=== PATIENT | female | born 1965 | race African-American/Black ===

== ENCOUNTER → 2017-04-17 | Outpatient (CLI) | payer BC ==
[2017-04-17 12:35] LABS: ALT 41 U/L (9-52); AST 31 U/L (14-36); Cholesterol 163 mg/dL (<200); HDL Cholesterol 98 mg/dL (40-60); LDL Cholesterol,Calculated 57 mg/dL (0-99); Triglycerides 42 mg/dL (<150)
== END | disposition home or self-care (01) ==
LOC: LABWHC1 11:49
PROVIDERS: ATTEND Family Medicine
DX: E78.00 Pure hypercholesterolemia, unspecified (principal)
CPT/HCPCS: 36415; 80061; 84450; 84460

== ENCOUNTER → 2017-06-11 | Outpatient (CLI) | payer BC ==
[2017-06-12 01:53] LABS: Gliadin AB IgA, Unit 1.4 U/mL
== END | disposition home or self-care (01) ==
LOC: LABWHC1 15:52
PROVIDERS: ATTEND Internal Medicine Critical Care Medicine
DX: R09.89 Other specified symptoms and signs involving the circulatory and respiratory systems (principal); J45.909 Unspecified asthma, uncomplicated
CPT/HCPCS: 36415; 83516

== ENCOUNTER → 2018-04-22 | Outpatient (CLI) | payer BC ==
--- NOTE | 2018-04-26 09:07 | MM ---
Reason for exam: additional evaluation requested from prior study. Last mammogram was performed 2 years and 6 months ago. History: Patient is postmenopausal and had first child at age 34. Family history of breast cancer in mother at age 88. Benign right mammotome panel of the right breast, February 13, 2009. Physical Findings: Nurse did not find any significant physical abnormalities on exam. MG 3D Diag Mammo W/Cad ABDI Bilateral CC and MLO view(s) were taken. LM, spot compression CC, and spot compression MLO view(s) were taken of the left breast. Prior study comparison: October 27, 2015, bilateral MG 3d diag mammo w/cad ABDI. October 21, 2013, bilateral MG diagnostic mammo w CAD ABDI. The breast tissue is heterogeneously dense. This may lower the sensitivity of mammography. There are no suspicious calcifications. The focal asymmetry in the left breast at 12 o'clock persists on additional views. An ultrasound is recommended. ASSESSMENT: Incomplete: need additional imaging evaluation, BI-RAD 0 RECOMMENDATION: Ultrasound of the left breast.
--- NOTE | 2018-04-26 09:09 | USB ---
History: Patient is postmenopausal and had first child at age 34. Family history of breast cancer in mother at age 88. Benign right mammotome panel of the right breast, February 13, 2009. US Breast Limited LT Left limited breast ultrasound including focal area of concern, retroareolar and axilla demonstrates No cystic or solid lesion seen on the left breast. These results were verbally communicated with the patient and result sheet given to the patient on 04/22/18. ASSESSMENT: Probably benign, BI-RAD 3 RECOMMENDATION: Follow-up diagnostic mammogram of the left breast in 6 months.
== END | disposition home or self-care (01) ==
LOC: RADMAMWWP 07:41
PROVIDERS: ATTEND Family Medicine
DX: R92.8 Other abnormal and inconclusive findings on diagnostic imaging of breast (principal)
CPT/HCPCS: 77062; 77066

== ENCOUNTER → 2019-02-22 | Outpatient (CLI) | payer BC ==
--- NOTE | 2019-02-22 09:08 | MM ---
Reason for exam: follow-up at short interval from prior study. Last mammogram was performed 10 months ago. History: Patient is postmenopausal, has history of ovarian cancer at age 53, and had first child at age 34. Family history of breast cancer in mother at age 88. Benign right mammotome panel of the right breast, February 13, 2009. Took hormonal contraceptives for 15 years. Physical Findings: Nurse did not find any significant physical abnormalities on exam. MG 3D Diag Mammo W/Cad LT CC and MLO view(s) were taken of the left breast. Prior study comparison: April 22, 2018, bilateral MG 3d diag mammo w/cad ABDI. October 27, 2015, bilateral MG 3d diag mammo w/cad ABDI. Focal asymmetry appears stable. No significant new findings when compared with previous films. These results were verbally communicated with the patient and result sheet given to the patient on 02/22/19. ASSESSMENT: Benign, BI-RAD 2 RECOMMENDATION: Routine screening mammogram of both breasts in 2 months.
== END | disposition home or self-care (01) ==
LOC: RADMAMWWP 07:45
PROVIDERS: ATTEND Family Medicine
DX: R92.8 Other abnormal and inconclusive findings on diagnostic imaging of breast (principal)
CPT/HCPCS: 77061; 77065

== ENCOUNTER → 2019-11-22 | Outpatient (CLI) | payer BC ==
--- NOTE | 2019-11-22 18:35 | BD ---
EXAMINATION TYPE: Axial Bone Density DATE OF EXAM: 11/22/2019 COMPARISON: NONE CLINICAL HISTORY: POSTMENOPAUSAL SCREENING Height: 5 FT 2 3/4 IN Weight: 187 FRAX RISK QUESTIONS: Alcohol (3 or more units per day): NO Family History (Parent hip fracture): NO Glucocorticoids (More than 3mos): YES (Ex: prednisone, prednisolone, methylprednisolone, dexamethasone, and hydrocortisone). History of Fracture in Adulthood: NO Secondary Osteoporosis: 1. Type 1 Diabetes: NO 2. Hyperthyroidism: NO 3. Menopause before 45: NO 4. Malnutrition: NO 5. Chronic liver disease: NO Rheumatoid Arthritis: NO Current Tobacco Use: NO RISK FACTORS HISTORY OF: Family History of Osteoporosis: NO Active: YES Postmenopausal woman: APPROX AGE [age]TOTAL HYST AUGUST 2018 OVARIAN CANCER MEDICATIONS: Prednisone or other steroids: ADVAIR How Lon YEARS Additional Medications: LUPRON, ADVAIR,FLONASE, ANASTROZOLE, ATORVASTATIN, AMLODIPINE, LOSARTIN,SING ULAIR Additional History: OVARIAN CANCER NO TX EXAM MEASUREMENTS: Bone mineral densitometry was performed using the [employer]. Bone mineral density as measured about the Lumbar spine is: ----- L1-L4(G/cm2): 1.335 T Score Values are as follows: ----- L2: 1.3 ----- L3: 0.6 ----- L4: 1.6 ----- L1-L4: 1.3 BASELINE Bone mineral density about the R hip (g/cm2): 1.132 Bone mineral density about the L hip (g/cm2): 1.019 T Score values are as follows: -----R Neck: 0.7 -----L Neck: -0.1 -----R Total: 1.5 -----L Total: 1.1 BASELINE IMPRESSION: Normal (Values between +1 and -1 indicate normal bone mass). Consider repeating this study in 5 year s or sooner if there is some new clinical indication. NOTE: T-SCORE=SD OF THE YOUNG ADULT MEAN.
--- NOTE | 2019-11-23 11:14 | MM ---
Reason for exam: screening (asymptomatic). Last mammogram was performed 9 months ago. History: Patient is postmenopausal, has history of ovarian cancer at age 53, and had first child at age 34. Family history of breast cancer in mother at age 88. Benign right mammotome panel of the right breast, February 13, 2009. Took hormonal contraceptives for 15 years. Physical Findings: A clinical breast exam by your physician is recommended on an annual basis and results should be correlated with mammographic findings. MG 3D Screening Mammo W/Cad Bilateral CC and MLO view(s) were taken. Prior study comparison: February 22, 2019, left breast MG 3d diag mammo w/cad LT. April 22, 2018, bilateral MG 3d diag mammo w/cad ABDI. The breast tissue is heterogeneously dense. This may lower the sensitivity of mammography. Previous mammotome biopsy in the right breast. There is no discrete abnormality. ASSESSMENT: Negative, BI-RAD 1 RECOMMENDATION: Routine screening mammogram of both breasts in 1 year.
== END | disposition home or self-care (01) ==
LOC: RADBDWWP 13:16
PROVIDERS: ATTEND Family Medicine
DX: Z12.31 Encounter for screening mammogram for malignant neoplasm of breast (principal); Z78.0 Asymptomatic menopausal state
CPT/HCPCS: 77063; 77067; 77080

== ENCOUNTER → 2020-05-24 | Outpatient (CLI) | payer BC ==
--- NOTE | 2020-05-24 17:01 | US ---
EXAMINATION TYPE: US thyroid st tissue head/neck DATE OF EXAM: 05/24/2020 COMPARISON: NONE CLINICAL HISTORY: 55-year-old female E07.9 Asymmetrical thyroid. Pt states Dr felt thyroid looked asy mmetric. TECHNIQUE: Multiple sonographic images of the thyroid gland are obtained. FINDINGS: GLAND SIZE: Right Lobe: 4.7 x 1.4 x 1.4 cm Overall Parenchyma: homogenous Left Lobe: 4.4 x 1.4 x 1.4 cm Overall Parenchyma: homogeneous Isthmus Thickness: 0.3 cm Credit Control Manager notes: Bilateral neck scanned, no evidence of lymphadenopathy. Bilateral thyroid appeared wnl. IMPRESSION: Thyroid gland upper limits of normal in size. The right lobe is minimally larger than the left. No di screte nodule.
== END | disposition home or self-care (01) ==
LOC: RADUSWWP 14:57
PROVIDERS: ATTEND Family Medicine
DX: E04.9 Nontoxic goiter, unspecified (principal)
CPT/HCPCS: 76536

== ENCOUNTER 2021-03-23 14:06 | Emergency (ER) | payer BC ==
[2021-03-23 14:51] VITALS: TEMP 97.7
[2021-03-23] MEDS ORDERED: SILVER NITRATE APPLICATOR 1 EACH STICK..EA. TOPICAL STA (15:46)
--- NOTE | 2021-03-23 15:46 | ED ---
General Adult HPI - General Chief complaint: ENT Stated complaint: Diff Breathing, Nose Bleed Time Seen by Provider: 03/23/21 15:30 Source: patient Mode of arrival: ambulatory Limitations: no limitations - History of Present Illness Initial comments: Patient presents to the ED with her friend for evaluation. Patient states that she has had right-sided epistaxis since yesterday. Patient states that she had both of her nasal cavities "packed" at [facility] yesterday with resolution of her epistaxis. Patient states that the right side of her nose began to bleed again today, so she returned to [facility], and she states that her packings were removed and Andrew-Synephrine nasal spray was administered. Patient states that her epistaxis has resolved since then, but she is worried that it may begin again later today. Patient is requesting nasal cautery. Patient states that she has ovarian cancer, and she is being treated with chemotherapy. Patient states that she last had a partial chemotherapy treatment 4 days ago. Patient also states that she had Covid earlier this month. Patient denies fever or chills, anticoagulant medication use, trauma or injury, any pain, nasal pain, headache, chest pain, dyspnea, dizziness, nausea or vomiting, bloody or melanotic stool, or any other symptoms or complaints. - Related Data Home Medications Medication Instructions Recorded Confirmed Albuterol Inhaler [Ventolin Hfa 2 puff INHALATION RT-Q6H PRN 07/17/20 03/23/21 Inhaler] Atorvastatin [Lipitor] 20 mg PO DAILY 07/17/20 03/23/21 Fluticasone/Salmeterol [Advair Hfa 2 puff INHALATION RT-BID 07/17/20 03/23/21 230-21 Mcg Inhaler] Losartan [Cozaar] 25 mg PO DAILY 07/17/20 03/23/21 Montelukast [Singulair] 10 mg PO DAILY 07/17/20 03/23/21 amLODIPine [Norvasc] 5 mg PO BID 07/17/20 03/23/21 Ascorbic Acid [Vitamin C] 500 mg PO DAILY 03/23/21 03/23/21 Benzonatate [Tessalon Perles] 100 mg PO TID 03/23/21 03/23/21 Dexamethasone 6 mg PO DAILY 03/23/21 03/23/21 LORazepam [Ativan] 0.5 mg PO TID PRN 03/23/21 03/23/21 Zinc Gluconate [Zinc] 50 mg PO DAILY 03/23/21 03/23/21 Allergies Allergy/AdvReac Type Severity Reaction Status Date / Time adhesive tape Allergy Unknown Verified 03/23/21 16:51 cat dander Allergy Unknown Verified 03/23/21 16:51 cephalexin [From Keflex] Allergy Unknown Verified 03/23/21 16:51 house dust Allergy Unknown Verified 03/23/21 16:51 Review of Systems ROS Statement: Those systems with pertinent positive or pertinent negative responses have been documented in the HPI. ROS Other: All systems not noted in ROS Statement are negative. Past Medical History Past Medical History: Asthma, Cancer, Diabetes Mellitus, Hypertension Additional Past Medical History / Comment(s): COVID 02/21/21 HOSPITALIZED OXYGEN AT HOME POST DISCHARGE, pt. started chemo for Ovarian CA. History of Any Multi-Drug Resistant Organisms: None Reported Past Surgical History: Appendectomy, Bowel Resection, Cardiac Ablation, Hysterectomy Additional Past Surgical History / Comment(s): Dec 2019 colectomy, appendectomy Past Anesthesia/Blood Transfusion Reactions: No Reported Reaction Past Psychological History: No Psychological Hx Reported Smoking Status: Former smoker Past Alcohol Use History: Rare Past Drug Use History: None Reported General Exam Limitations: no limitations General appearance: alert, in no apparent distress Head exam: Present: atraumatic, normocephalic Eye exam: Present: normal appearance, EOMI ENT exam: Present: other (A few small clots are noted along right anterior nasal septum; no active epistaxis is noted at this time) Neck exam: Present: other (Trachea is in midline) Respiratory exam: Present: normal lung sounds bilaterally. Absent: respiratory distress, wheezes, rales, rhonchi, stridor Cardiovascular Exam: Present: regular rate, normal rhythm, normal heart sounds, other (Normal radial pulses bilaterally ) GI/Abdominal exam: Present: soft. Absent: distended, tenderness, guarding Neurological exam: Present: alert, oriented X3. Absent: motor sensory deficit Psychiatric exam: Present: normal affect, normal mood Skin exam: Present: warm, dry, intact, normal color Course Vital Signs 03/23/21 03/23/21 14:45 17:38 Temperature 97.7 F Pulse Rate 138 H 86 Respiratory 19 18 Rate Blood Pressure 94/65 103/75 O2 Sat by Pulse 90 L 94 L Oximetry - Reevaluation(s) Reevaluation #1: 03/23/21 20:25 Patient has not had any further epistaxis while in the ED. Patient remains alert and breathing comfortably. Patient denies development of any new symptoms while in the ED. Patient and friend are aware the patient's test results, and patient feels comfortable going home with her friend at this time. Patient was counseled about epistaxis and hyperglycemia, and she was clearly explained return and follow-up instructions. Patient was instructed to have a low threshold for return to the emergency department should her symptoms return /worsen. Patient was also instructed to follow up closely with her primary care provider, as well as ENT surgery. Patient feels comfortable with this plan. Procedures - Procedures Initial comment: 1644: Silver nitrate cautery was performed along the patient's right anterior nasal septum with verbal consent from the patient obtained. Patient tolerated the procedure well and without any complication. No post-procedural epistaxis was observed. Medical Decision Making - Medical Decision Making Patient has not had any further epistaxis while in the ED. I did cauterize the patient's right anterior nasal septum with silver nitrate in the areas where she was noted to have small blood clots. Patient's blood glucose is elevated, bur she is not acidotic, and she has a normal anion gap. Patient's blood glucose has improved while in the ED with IV fluids and subcutaneous regular insulin administration. Patient was instructed to check her blood glucose regularly at home and to follow up closely with her primary care provider for further evaluation and management of her hyperglycemia. Patient was counseled about epistaxis and hyperglycemia, and she was clearly explained return and follow-up instructions. Will discharge patient home with her friend at this time. - Lab Data Result diagrams: 03/23/21 16:15 03/23/21 16:15 Lab Results 03/23/21 03/23/21 03/23/21 Range/Units 16:15 16:15 16:15 WBC 11.0 H (3.8-10.6) k/uL RBC 4.00 (3.80-5.40) m/uL Hgb 12.3 (11.4-16.0) gm/dL Hct 37.8 (34.0-46.0) % MCV 94.4 D (80.0-100.0) fL MCH 30.7 (25.0-35.0) pg MCHC 32.5 (31.0-37.0) g/dL RDW 18.3 H (11.5-15.5) % Plt Count 109 L (150-450) k/uL MPV 8.5 Neutrophils % 72 % Lymphocytes % 25 % Monocytes % 1 % Eosinophils % 2 % Basophils % 0 % Neutrophils # 8.0 H (1.3-7.7) k/uL Lymphocytes # 2.7 (1.0-4.8) k/uL Monocytes # 0.1 (0-1.0) k/uL Eosinophils # 0.2 (0-0.7) k/uL Basophils # 0.0 (0-0.2) k/uL Anisocytosis Slight Macrocytosis Slight PT 10.5 (9.0-12.0) sec INR 1.0 (<1.2) APTT 18.5 L (22.0-30.0) sec Sodium 131 L (137-145) mmol/L Potassium 3.9 (3.5-5.1) mmol/L Chloride 97 L (98-107) mmol/L Carbon Dioxide 23 (22-30) mmol/L Anion Gap 11 mmol/L BUN 56 H (7-17) mg/dL Creatinine 0.72 (0.52-1.04) mg/dL Est GFR (CKD-EPI)AfAm >90 (>60 ml/min/1.73 sqM) Est GFR (CKD-EPI)NonAf >90 (>60 ml/min/1.73 sqM) Glucose 352 H (74-99) mg/dL POC Glucose (mg/dL) (75-99) mg/dL POC Glu Cement Loader ID Calcium 8.6 (8.4-10.2) mg/dL Total Bilirubin 1.1 (0.2-1.3) mg/dL AST 24 (14-36) U/L ALT 37 H (4-34) U/L Alkaline Phosphatase 86 (38-126) U/L Total Protein 6.2 L (6.3-8.2) g/dL Albumin 3.4 L (3.5-5.0) g/dL 03/23/21 03/23/21 Range/Units 17:31 20:22 WBC (3.8-10.6) k/uL RBC (3.80-5.40) m/uL Hgb (11.4-16.0) gm/dL Hct (34.0-46.0) % MCV (80.0-100.0) fL MCH (25.0-35.0) pg MCHC (31.0-37.0) g/dL RDW (11.5-15.5) % Plt Count (150-450) k/uL MPV Neutrophils % % Lymphocytes % % Monocytes % % Eosinophils % % Basophils % % Neutrophils # (1.3-7.7) k/uL Lymphocytes # (1.0-4.8) k/uL Monocytes # (0-1.0) k/uL Eosinophils # (0-0.7) k/uL Basophils # (0-0.2) k/uL Anisocytosis Macrocytosis PT (9.0-12.0) sec INR (<1.2) APTT (22.0-30.0) sec Sodium (137-145) mmol/L Potassium (3.5-5.1) mmol/L Chloride (98-107) mmol/L Carbon Dioxide (22-30) mmol/L Anion Gap mmol/L BUN (7-17) mg/dL Creatinine (0.52-1.04) mg/dL Est GFR (CKD-EPI)AfAm (>60 ml/min/1.73 sqM) Est GFR (CKD-EPI)NonAf (>60 ml/min/1.73 sqM) Glucose (74-99) mg/dL POC Glucose (mg/dL) 374 H 271 H (75-99) mg/dL POC Glu Cement Loader Kami Cain Tom Calcium (8.4-10.2) mg/dL Total Bilirubin (0.2-1.3) mg/dL AST (14-36) U/L ALT (4-34) U/L Alkaline Phosphatase (38-126) U/L Total Protein (6.3-8.2) g/dL Albumin (3.5-5.0) g/dL Disposition Clinical Impression: Epistaxis, Hyperglycemia Disposition: HOME SELF-CARE Condition: Stable Instructions (If sedation given, give patient instructions): Nosebleed (ED), Diabetic Hyperglycemia (ED) Additional Instructions: Return to the ER immediately should you develop increased bleeding, feeling dizzy or faint, shortness of breath, any significant pain, a fever, vomiting, or new or worsening symptoms. Follow up closely with your primary care provider, as well as with ENT surgery. Is patient prescribed a controlled substance at d/c from ED?: No Referrals: Omgea Landis MD [Primary Care Provider] - 1-2 days Sammy Murdock DO [Doctor of Osteopathic Medicine] - 1-2 days Time of Disposition: 20:26
[2021-03-23 16:27] LABS: Anisocytosis Slight; Basophils % (A) 0 %; Eosinophils # (A) 0.2 k/uL (0-0.7); Eosinophils % (A) 2 %; HCT 37.8 % (34.0-46.0); HGB 12.3 gm/dL (11.4-16.0); Lymphocytes # (A) 2.7 k/uL (1.0-4.8); Lymphocytes % (A) 25 %; MCH 30.7 pg (25.0-35.0); MCHC 32.5 g/dL (31.0-37.0); MCV 94.4 fL (80.0-100.0); Macrocytosis Slight; Mean Platelet Volume 8.5; Monocytes # (A) 0.1 k/uL (0-1.0); Monocytes % (A) 1 %; Neutrophils % (A) 72 %; Platelet Count 109 k/uL (150-450); RDW 18.3 % (11.5-15.5)
[2021-03-23 16:48] LABS: ALT 37 U/L (4-34); AST 24 U/L (14-36); African American GFR (CKD) >90 (>60 ml/min/1.73 sqM); Albumin 3.4 g/dL (3.5-5.0); Alkaline Phosphatase 86 U/L (38-126); Anion Gap 11 mmol/L; Blood Urea Nitrogen 56 mg/dL (7-17); Calcium 8.6 mg/dL (8.4-10.2); Carbon Dioxide 23 mmol/L (22-30); Chloride 97 mmol/L (98-107); Glucose 352 mg/dL (74-99); Non-African American GFR(CKD) >90 (>60 ml/min/1.73 sqM); Potassium 3.9 mmol/L (3.5-5.1); Sodium 131 mmol/L (137-145); Total Bilirubin 1.1 mg/dL (0.2-1.3); Total Protein 6.2 g/dL (6.3-8.2)
[2021-03-23] MEDS ORDERED: INSULIN REGULAR 100 UNIT/ML VIAL (IM/SQ) SQ STA (17:07)
[2021-03-23] MEDS ORDERED: SODIUM CHLORIDE 0.9% 1,000 ML IV ONE (17:07)
[2021-03-23 17:19] LABS: Prothrombin Time 10.5 sec (9.0-12.0)
[2021-03-23 17:33] LABS: Glucose,Whole Blood 374 mg/dL (75-99)
[2021-03-23 17:36] LABS: Partial Thromboplastin Time 18.5 sec (22.0-30.0)
[2021-03-23 17:39] VITALS: BP 103/75; PULSE 86; RESP 18
[2021-03-23 20:23] LABS: Glucose,Whole Blood 271 mg/dL (75-99)
== END 2021-03-23 21:14 | disposition home or self-care (01) ==
LOC: EC 14:06
DX: R04.0 Epistaxis (principal); E11.65 Type 2 diabetes mellitus with hyperglycemia; I10 Essential (primary) hypertension; J45.909 Unspecified asthma, uncomplicated; Z87.891 Personal history of nicotine dependence; Z79.51 Long term (current) use of inhaled steroids; Z79.899 Other long term (current) drug therapy
CPT/HCPCS: 30901; 36415; 80053; 85025; 85610; 85730; 96360; 99283

== ENCOUNTER 2021-03-29 22:30 | Observation (INO) | payer BC ==
[2021-03-29] MEDS ORDERED: SODIUM CHLORIDE 0.9% 500 ML 500 ML IV STA (23:08)
[2021-03-29] MEDS ORDERED: SODIUM CHLORIDE 0.9% 1,000 ML IV STA (23:08)
[2021-03-29] MEDS ORDERED: DEXAMETHASONE SOD PHOSPHATE 10 MG/ML 1 ML VIAL IVP STA (23:08)
[2021-03-29] MEDS ORDERED: IPRATROPIUM-ALBUTEROL 3 ML NEB INHALATION STA (23:08)
--- NOTE | 2021-03-29 23:09 | ED ---
SOB HPI - General Chief Complaint: ENT Stated Complaint: Nosebleed Time Seen by Provider: 03/29/21 22:48 Source: patient, EMS, RN notes reviewed, old records reviewed Mode of arrival: EMS Limitations: no limitations - History of Present Illness Initial Comments: This is a 55 female to the emergency room today for evaluation of shortness of breath persistent shortness breath and weakness. Persistent cough or congestion with weakness. Patient decreased activity level with weakness. Patient coronavirus one month ago symptoms are still severe. She still 1 with recurrent nosebleeds MD Complaint: shortness of breath, cough -: week(s) Radiation: back Severity: moderate Severity scale (1-10): 7 Quality: aching Consistency: constant Improves With: oxygen Worsens With: nothing Known History Of: COPD, asthma Context: recent URI, recent illness Associated Symptoms: fever, cough Treatments Prior to Arrival: none - Related Data Home Medications Medication Instructions Recorded Confirmed Albuterol Inhaler [Ventolin Hfa 2 puff INHALATION RT-Q6H PRN 07/17/20 03/23/21 Inhaler] Atorvastatin [Lipitor] 20 mg PO DAILY 07/17/20 03/23/21 Fluticasone/Salmeterol [Advair Hfa 2 puff INHALATION RT-BID 07/17/20 03/23/21 230-21 Mcg Inhaler] Losartan [Cozaar] 25 mg PO DAILY 07/17/20 03/23/21 Montelukast [Singulair] 10 mg PO DAILY 07/17/20 03/23/21 amLODIPine [Norvasc] 5 mg PO BID 07/17/20 03/23/21 Ascorbic Acid [Vitamin C] 500 mg PO DAILY 03/23/21 03/23/21 Benzonatate [Tessalon Perles] 100 mg PO TID 03/23/21 03/23/21 Dexamethasone 6 mg PO DAILY 03/23/21 03/23/21 LORazepam [Ativan] 0.5 mg PO TID PRN 03/23/21 03/23/21 Zinc Gluconate [Zinc] 50 mg PO DAILY 03/23/21 03/23/21 Allergies Allergy/AdvReac Type Severity Reaction Status Date / Time adhesive tape Allergy Unknown Verified 03/23/21 16:51 cat dander Allergy Unknown Verified 03/23/21 16:51 cephalexin [From Keflex] Allergy Unknown Verified 03/23/21 16:51 house dust Allergy Unknown Verified 03/23/21 16:51 Review of Systems ROS Statement: Those systems with pertinent positive or pertinent negative responses have been documented in the HPI. ROS Other: All systems not noted in ROS Statement are negative. Past Medical History Past Medical History: Asthma, Cancer, Diabetes Mellitus, Hypertension Additional Past Medical History / Comment(s): COVID 02/21/21 HOSPITALIZED OXYGEN AT HOME POST DISCHARGE, pt. started chemo for Ovarian CA. History of Any Multi-Drug Resistant Organisms: None Reported Past Surgical History: Appendectomy, Bowel Resection, Cardiac Ablation, Hysterectomy Additional Past Surgical History / Comment(s): Dec 2019 colectomy, appendectomy Past Anesthesia/Blood Transfusion Reactions: No Reported Reaction Past Psychological History: No Psychological Hx Reported Smoking Status: Former smoker Past Alcohol Use History: Rare Past Drug Use History: None Reported General Exam Limitations: no limitations General appearance: alert, in no apparent distress, anxious Head exam: Present: atraumatic, normocephalic, normal inspection Eye exam: Present: normal appearance, PERRL, EOMI. Absent: scleral icterus, conjunctival injection, periorbital swelling ENT exam: Present: normal exam, mucous membranes moist Neck exam: Present: normal inspection. Absent: tenderness, meningismus, lymphadenopathy Respiratory exam: Present: respiratory distress, wheezes, decreased breath sounds, prolonged expiratory. Absent: rales, rhonchi, stridor Cardiovascular Exam: Present: normal rhythm, tachycardia, normal heart sounds. Absent: systolic murmur, diastolic murmur, rubs, gallop, clicks GI/Abdominal exam: Present: soft, normal bowel sounds. Absent: distended, tenderness, guarding, rebound, rigid Extremities exam: Present: normal inspection, full ROM, normal capillary refill. Absent: tenderness, pedal edema, joint swelling, calf tenderness Back exam: Present: normal inspection Neurological exam: Present: alert, oriented X3, CN II-XII intact Psychiatric exam: Present: normal affect, normal mood Skin exam: Present: warm, dry, intact, normal color. Absent: rash Course Vital Signs 03/29/21 03/29/21 03/30/21 22:43 23:32 00:23 Temperature 98.1 F Pulse Rate 131 H 113 H 105 H Respiratory 18 16 Rate Blood Pressure 119/72 O2 Sat by Pulse 96 96 Oximetry 03/30/21 00:30 Temperature Pulse Rate 103 H Respiratory Rate Blood Pressure O2 Sat by Pulse Oximetry - Reevaluation(s) Reevaluation #1: 03/30/21 01:14 Medical record is reviewed Reevaluation #2: 03/30/21 01:14 Symptoms are slowly improving here in the ER Reevaluation #3: 03/30/21 01:14 Patient informed results and questions answered - Consultations Consultation #1: Spoke with sound who agrees to admit this patient Medical Decision Making - Medical Decision Making 55 female DF for evaluation of severe COPD exacerbation chronic COPD exacerbation hypoxia with new anemia. Patient is known cancer patient. Patient be admitted for treatment. She was supplemental O2 and steroids - Lab Data Result diagrams: 03/29/21 23:31 03/29/21 23:31 Lab Results 03/29/21 03/29/21 03/29/21 Range/Units 23:31 23:31 23:31 WBC 3.8 (3.8-10.6) k/uL RBC 3.09 L (3.80-5.40) m/uL Hgb 9.0 L D (11.4-16.0) gm/dL Hct 29.6 L (34.0-46.0) % MCV 95.9 (80.0-100.0) fL MCH 29.2 (25.0-35.0) pg MCHC 30.4 L (31.0-37.0) g/dL RDW 19.3 H (11.5-15.5) % Plt Count 127 L (150-450) k/uL MPV 8.4 Neutrophils % (Manual) 54 % Lymphocytes % (Manual) 39 % Monocytes % (Manual) 7 % Neutrophils # (Manual) 2.05 (1.3-7.7) k/uL Lymphocytes # (Manual) 1.48 (1.0-4.8) k/uL Monocytes # (Manual) 0.27 (0-1.0) k/uL Nucleated RBCs 3 H (0-0) /100 WBC Polychromasia Present Hypochromasia Slight Anisocytosis Slight Macrocytosis Slight PT 10.3 (9.0-12.0) sec INR 1.0 (<1.2) APTT 19.1 L (22.0-30.0) sec D-Dimer 6.34 H (<0.60) mg/L FEU Sodium 133 L (137-145) mmol/L Potassium 3.2 L (3.5-5.1) mmol/L Chloride 100 (98-107) mmol/L Carbon Dioxide 24 (22-30) mmol/L Anion Gap 9 mmol/L BUN 15 (7-17) mg/dL Creatinine 0.71 (0.52-1.04) mg/dL Est GFR (CKD-EPI)AfAm >90 (>60 ml/min/1.73 sqM) Est GFR (CKD-EPI)NonAf >90 (>60 ml/min/1.73 sqM) Glucose 209 H (74-99) mg/dL Calcium 8.3 L (8.4-10.2) mg/dL Phosphorus 3.0 (2.5-4.5) mg/dL Magnesium 1.8 (1.6-2.3) mg/dL Total Bilirubin 0.4 (0.2-1.3) mg/dL AST 57 H (14-36) U/L ALT 61 H (4-34) U/L Alkaline Phosphatase 107 (38-126) U/L Lactate Dehydrogenase 896 H (313-618) U/L Troponin I (0.000-0.034) ng/mL C-Reactive Protein 2.9 H (<1.0) mg/dL NT-Pro-B Natriuret Pep pg/mL Total Protein 5.8 L (6.3-8.2) g/dL Albumin 3.2 L (3.5-5.0) g/dL TSH 1.450 (0.465-4.680) mIU/L 03/29/21 03/29/21 Range/Units 23:31 23:31 WBC (3.8-10.6) k/uL RBC (3.80-5.40) m/uL Hgb (11.4-16.0) gm/dL Hct (34.0-46.0) % MCV (80.0-100.0) fL MCH (25.0-35.0) pg MCHC (31.0-37.0) g/dL RDW (11.5-15.5) % Plt Count (150-450) k/uL MPV Neutrophils % (Manual) % Lymphocytes % (Manual) % Monocytes % (Manual) % Neutrophils # (Manual) (1.3-7.7) k/uL Lymphocytes # (Manual) (1.0-4.8) k/uL Monocytes # (Manual) (0-1.0) k/uL Nucleated RBCs (0-0) /100 WBC Polychromasia Hypochromasia Anisocytosis Macrocytosis PT (9.0-12.0) sec INR (<1.2) APTT (22.0-30.0) sec D-Dimer (<0.60) mg/L FEU Sodium (137-145) mmol/L Potassium (3.5-5.1) mmol/L Chloride (98-107) mmol/L Carbon Dioxide (22-30) mmol/L Anion Gap mmol/L BUN (7-17) mg/dL Creatinine (0.52-1.04) mg/dL Est GFR (CKD-EPI)AfAm (>60 ml/min/1.73 sqM) Est GFR (CKD-EPI)NonAf (>60 ml/min/1.73 sqM) Glucose (74-99) mg/dL Calcium (8.4-10.2) mg/dL Phosphorus (2.5-4.5) mg/dL Magnesium (1.6-2.3) mg/dL Total Bilirubin (0.2-1.3) mg/dL AST (14-36) U/L ALT (4-34) U/L Alkaline Phosphatase (38-126) U/L Lactate Dehydrogenase (313-618) U/L Troponin I <0.012 (0.000-0.034) ng/mL C-Reactive Protein (<1.0) mg/dL NT-Pro-B Natriuret Pep 121 pg/mL Total Protein (6.3-8.2) g/dL Albumin (3.5-5.0) g/dL TSH (0.465-4.680) mIU/L - EKG Data -: EKG Interpreted by Me (EKG shows sinus tachycardia 111 IL 132 QRS 98 QTc 500) - Radiology Data Radiology results: report reviewed (CTA of chest negative for PE positive for chronic conditions changes), image reviewed Disposition Clinical Impression: Anemia, Hypoxia, Acute exacerbation of chronic obstructive pulmonary disease (COPD) Disposition: ADMITTED IP TO THIS [facility] Condition: Fair Is patient prescribed a controlled substance at d/c from ED?: No Referrals: Omega Landis MD [Primary Care Provider] - 1-2 days
[2021-03-29 23:49] LABS: Anisocytosis Slight; HCT 29.6 % (34.0-46.0); Hypochromasia Slight; MCH 29.2 pg (25.0-35.0); MCHC 30.4 g/dL (31.0-37.0); MCV 95.9 fL (80.0-100.0); Macrocytosis Slight; Mean Platelet Volume 8.4; Platelet Count 127 k/uL (150-450); RBC 3.09 m/uL (3.80-5.40); RDW 19.3 % (11.5-15.5)
[2021-03-30 00:09] LABS: Prothrombin Time 10.3 sec (9.0-12.0)
[2021-03-30 00:15] LABS: Partial Thromboplastin Time 19.1 sec (22.0-30.0)
[2021-03-30 00:21] LABS: ALT 61 U/L (4-34); AST 57 U/L (14-36); African American GFR (CKD) >90 (>60 ml/min/1.73 sqM); Albumin 3.2 g/dL (3.5-5.0); Alkaline Phosphatase 107 U/L (38-126); Anion Gap 9 mmol/L; Blood Urea Nitrogen 15 mg/dL (7-17); C Reactive Protein 2.9 mg/dL (<1.0); Calcium 8.3 mg/dL (8.4-10.2); Carbon Dioxide 24 mmol/L (22-30); Chloride 100 mmol/L (98-107); Glucose 209 mg/dL (74-99); LDH 896 U/L (313-618); Magnesium 1.8 mg/dL (1.6-2.3); Non-African American GFR(CKD) >90 (>60 ml/min/1.73 sqM); Potassium 3.2 mmol/L (3.5-5.1); Sodium 133 mmol/L (137-145); Total Bilirubin 0.4 mg/dL (0.2-1.3); Total Protein 5.8 g/dL (6.3-8.2)
[2021-03-30 00:55] LABS: Lymphocytes # (M) 1.48 k/uL (1.0-4.8); Monocytes # (M) 0.27 k/uL (0-1.0); Neutrophils # (M) 2.05 k/uL (1.3-7.7); Neutrophils % (M) 54 %; Nucleated Red Blood Cells 3 /100 WBC (0-0); Total Cells Counted 100; WBC 3.8 k/uL (3.8-10.6)
[2021-03-30 00:56] LABS: Polychromasia Present
--- NOTE | 2021-03-30 01:06 | CT ---
EXAMINATION TYPE: CT angio chest DATE OF EXAM: 03/30/2021 COMPARISON: None HISTORY: R.O PE CT DLP: 470.4 mGycm Automated exposure control for dose reduction was used. CONTRAST: Performed with IV Contrast, patient injected with 80 mL of Isovue 370. Images obtained from the thoracic inlet to the diaphragm with IV contrast. There are Three-D postproc essed images. There is coarse interstitial reticular and linear density in both lungs. This is seen in the upper an d lower lobes bilaterally. There is no evidence of a pulmonary mass. There is no pleural effusion. He art is slightly enlarged. There is no pericardial effusion. Ascending aorta measures 3 cm. There is n o aneurysm or dissection. There is normal contrast opacification of the pulmonary arteries. There are no filling defects. There is no mediastinal adenopathy. There are no hilar masses. The thoracic spine is intact. There is no compression fracture. Sternum is intact. IMPRESSION: Patchy bilateral pulmonary infiltrates. This could relate to acute and chronic interstitial pneumonia . No discrete suspicious pulmonary mass. No evidence of pulmonary embolism.
[2021-03-30] MEDS ORDERED: NALOXONE 0.4 MG/ML 1 ML VIAL IV PRN (01:09)
[2021-03-30] MEDS ORDERED: ONDANSETRON 4 MG/2 ML VIAL IVP PRN (01:09)
[2021-03-30] MEDS ORDERED: MORPHINE SULFATE 4 MG/ML SYRINGE IV PRN (01:09)
[2021-03-30] MEDS ORDERED: ALBUTEROL NEBULIZED 2.5 MG/3 ML INHALATION PRN (03:33)
[2021-03-30] MEDS ORDERED: LORazepam 0.5 MG TAB PO PRN (03:33)
--- NOTE | 2021-03-30 03:38 | P.HPIM ---
History of Present Illness H&P Date: 03/30/21 Chief Complaint: Epistaxis 55-year-old female with ovarian cancer, mild persistent asthma Patient comes into the hospital for evaluation due to epistaxis she denies any injury or trauma she said she had multiple visits to the ED for epistaxis over the past week or so. Last time she was here she had cauterization done to the nose however she had recurrent bleeding today and was concerned decided come to the hospital. Bleeding has been controlled in the ED. However patient also mentioned that she's been having progressive shortness of breath since she had Covid where she was managed in the hospital beginning of the month in February and then was discharged on supplemental oxygen however she still reports that whenever she ambulates short distances around her home she will get fatigued and short of breath quickly and feels very tired despite supplemental oxygen she denies any ongoing fevers chills denies any ongoing wheezing or coughing she uses Advair daily and not requiring any rescue inhalers. She denies any leg swelling or tenderness in her calf muscles denies any recent travel. She denies any fevers or chills nausea or vomiting she denies any chest pain. Patient is currently on chemotherapy for ovarian cancer she's not been tolerating that well taking her even more fatigued In the ED workup showed elevated d-dimer CTA of the chest no acute PE, however did show some infiltrates Patient admitted for further evaluation and monitoring of her pulmonary status Review of Systems Pertinent positives as noted in HPI. All other systems were reviewed and are negative Past Medical History Past Medical History: Asthma, Cancer, Diabetes Mellitus, Hypertension Additional Past Medical History / Comment(s): COVID 02/21/21 HOSPITALIZED OXYGEN AT HOME POST DISCHARGE, pt. started chemo for Ovarian CA. History of Any Multi-Drug Resistant Organisms: None Reported Past Surgical History: Appendectomy, Bowel Resection, Cardiac Ablation, Hysterectomy Additional Past Surgical History / Comment(s): Dec 2019 colectomy, appendectomy Past Anesthesia/Blood Transfusion Reactions: No Reported Reaction Past Psychological History: No Psychological Hx Reported Smoking Status: Former smoker Past Alcohol Use History: Rare Past Drug Use History: None Reported - Past Family History Family Family Medical History: No Reported History Medications and Allergies Home Medications Medication Instructions Recorded Confirmed Type Albuterol Inhaler [Ventolin Hfa 2 puff INHALATION RT-Q6H PRN 07/17/20 03/23/21 History Inhaler] Atorvastatin [Lipitor] 20 mg PO DAILY 07/17/20 03/23/21 History Fluticasone/Salmeterol [Advair Hfa 2 puff INHALATION RT-BID 07/17/20 03/23/21 History 230-21 Mcg Inhaler] Losartan [Cozaar] 25 mg PO DAILY 07/17/20 03/23/21 History Montelukast [Singulair] 10 mg PO DAILY 07/17/20 03/23/21 History amLODIPine [Norvasc] 5 mg PO BID 07/17/20 03/23/21 History Ascorbic Acid [Vitamin C] 500 mg PO DAILY 03/23/21 03/23/21 History Benzonatate [Tessalon Perles] 100 mg PO TID 03/23/21 03/23/21 History Dexamethasone 6 mg PO DAILY 03/23/21 03/23/21 History LORazepam [Ativan] 0.5 mg PO TID PRN 03/23/21 03/23/21 History Zinc Gluconate [Zinc] 50 mg PO DAILY 03/23/21 03/23/21 History Allergies Allergy/AdvReac Type Severity Reaction Status Date / Time adhesive tape Allergy Unknown Verified 03/23/21 16:51 cat dander Allergy Unknown Verified 03/23/21 16:51 cephalexin [From Keflex] Allergy Unknown Verified 03/23/21 16:51 house dust Allergy Unknown Verified 03/23/21 16:51 Physical Exam Vitals: Vital Signs Temp Pulse Resp BP Pulse Ox 03/30/21 03:18 96 18 122/70 97 03/30/21 00:30 103 H 03/30/21 00:23 105 H 03/29/21 23:32 113 H 16 96 03/29/21 22:43 98.1 F 131 H 18 119/72 96 Intake and Output 03/29/21 03/29/21 03/30/21 14:59 22:59 06:59 Other: Weight 54.885 kg Constitutional: No acute distress, conversant, pleasant Eyes: Anicteric sclerae, moist conjunctiva, Pupils equal round reactive to light ENMT: NC/AT Oropharynx clear, no erythema, or exudates Neck: Supple, FROM, no masses, or JVD No carotid bruits No thyromegaly Lungs: Clear to auscultation Clear to percussion Normal respiratory effort, no accessory muscle use Cardiovascular: Heart regular in rate and rhythm, No murmurs, gallops, or rubs No peripheral edema Abdominal: Soft Nontender, no guarding, rebound or rigidity Abdomen moving with respiration Normoactive bowel sounds No hepatomegaly, No splenomegaly No palpable mass No abdominal wall hernia noted Skin: Normal temperature, tone, texture, turgor No induration No subcutaneous nodules No rash, lesions No ulcers Extremities: No digital cyanosis No clubbing Pedal pulses intact and symmetrical Radial pulses intact and symmetrical No calf tenderness Psychiatric: Alert and oriented to person, place and time Appropriate affect fair judgement Neuro Muscles Strength 5/5 in all 4 extremities Sensation to light touch grossly present throughout Cranial nerves II-XII grossly intact No focal sensory deficits Lymphatics: no palpable cervical or supraclavicular , or inguinal lymph nodes Results CBC & Chem 7: 03/29/21 23:31 03/29/21 23:31 Labs: Abnormal Lab Results - Last 24 Hours (Table) 03/29/21 03/29/21 03/29/21 Range/Units 23:31 23:31 23:31 RBC 3.09 L (3.80-5.40) m/uL Hgb 9.0 L D (11.4-16.0) gm/dL Hct 29.6 L (34.0-46.0) % MCHC 30.4 L (31.0-37.0) g/dL RDW 19.3 H (11.5-15.5) % Plt Count 127 L (150-450) k/uL Nucleated RBCs 3 H (0-0) /100 WBC APTT 19.1 L (22.0-30.0) sec D-Dimer 6.34 H (<0.60) mg/L FEU Sodium 133 L (137-145) mmol/L Potassium 3.2 L (3.5-5.1) mmol/L Glucose 209 H (74-99) mg/dL Calcium 8.3 L (8.4-10.2) mg/dL AST 57 H (14-36) U/L ALT 61 H (4-34) U/L Lactate Dehydrogenase 896 H (313-618) U/L C-Reactive Protein 2.9 H (<1.0) mg/dL Total Protein 5.8 L (6.3-8.2) g/dL Albumin 3.2 L (3.5-5.0) g/dL Assessment and Plan Assessment: Recurrent epistaxis Currently controlled Monitor hemoglobin Consider following up outpatient with ENT Exertional dyspnea, with subacute hypoxic respiratory failure post Covid infection Mild persistent asthma Continue supplemental oxygen Continue with home inhalers and when necessary prior Continue with Singulair Pulmonary evaluation Supportive care Monitor vital signs Elevated d-dimer, CT of the chest no acute PE Chronic conditions Ovarian cancer on chemotherapy continued follow-up outpatient Diabetes mellitus insulin sliding scale Hypertension resume cardiac meds Patient is full code Lovenox subcu for DVT prophylaxis Anticipated length of stay less than 2 midnights Anticipated discharge home
[2021-03-30] MEDS ORDERED: POTASSIUM CHLORIDE ER 20 MEQ TAB.ER PO STA (03:42)
[2021-03-30] MEDS: methylPREDNISolone SOD SUCCI 125 MG/2 ML VIAL IV SCH ×3 (05:40→16:48)
[2021-03-30] MEDS ORDERED: INSULIN ASPART (NovoLOG) 100 UNIT/ML VIAL SQ SCH (07:30)
[2021-03-30 07:47] LABS: Glucose,Whole Blood 243 mg/dL (75-99)
[2021-03-30] MEDS: ALBUTEROL NEBULIZED 2.5 MG/3 ML INHALATION SCH ×4 (07:57→19:52)
[2021-03-30] MEDS: SYMBICORT 160-4.5 MCG INHALER INHALATION SCH ×2 (08:03→19:53)
[2021-03-30] MEDS: SODIUM CHLORIDE 0.9% 1,000 ML IV SCH ×3 (08:05→22:32)
[2021-03-30] MEDS: INSULIN ASPART (NovoLOG) 100 UNIT/ML VIAL SQ SCH ×4 (08:36→22:29)
[2021-03-30] MEDS: BENZONATATE 100 MG CAP PO SCH ×3 (08:37→22:29)
[2021-03-30] MEDS: amLODIPine 5 MG TAB PO SCH ×2 (08:39→22:29)
[2021-03-30] MEDS ORDERED: MONTELUKAST 10 MG TAB PO SCH ×2 (09:00→21:00)
[2021-03-30] MEDS ORDERED: ATORVASTATIN 20 MG TAB PO SCH ×2 (09:00→21:00)
[2021-03-30] MEDS ORDERED: ENOXAPARIN 40 MG/0.4 ML SYRINGE SQ SCH (09:00)
[2021-03-30] MEDS ORDERED: LOSARTAN 25 MG TAB PO SCH ×2 (09:00→21:00)
[2021-03-30 10:46] LABS: Basophils # (A) 0 X 10*3/uL (0.00-0.10); Basophils % (A) 0 %; Eosinophils # (A) 0 X 10*3/uL (0.04-0.35); Eosinophils % (A) 0 %; HCT 28.6 % (37.2-46.3); HGB 8.8 g/dL (12.0-15.0); Lymphocytes # (A) 0.35 X 10*3/uL (0.90-5.00); Lymphocytes % (A) 13.4 %; MCH 29.2 pg (27.0-32.0); MCHC 30.8 g/dL (32.0-37.0); Mean Platelet Volume 11.5 fL (9.5-12.2); Monocytes # (A) 0.09 X 10*3/uL (0.20-1.00); Monocytes % (A) 3.4 %; Neutrophils # (A) 2.16 X 10*3/uL (1.80-7.70); Neutrophils % (A) 82.8 %; Platelet Count 102 X 10*3/uL (140-440); RBC 3.01 X 10*6/uL (4.10-5.20); RDW 20.7 % (11.5-14.5); WBC 2.61 X 10*3/uL (4.50-10.00)
[2021-03-30 10:57] LABS: African American GFR (CKD) 125.4 (60.0-200.0); Albumin 3.4 g/dL (3.8-4.9); Albumin/Globulin Ratio 1.55 (1.60-3.17); Anion Gap 14.6 mmol/L (10.00-18.00); BUN/Creat Ratio 26.6 Ratio (12.00-20.00); Blood Urea Nitrogen 13.3 mg/dL (9.0-27.0); Calcium 8.2 mg/dL (8.7-10.3); Carbon Dioxide 21.4 mmol/L (20.0-27.5); Globulin 2.2 g/dL (1.6-3.3); Non-African American GFR(CKD) 108.2 (60.0-200.0); Potassium 4.6 mmol/L (3.5-5.5); Total Bilirubin 0.3 mg/dL (0.30-1.20); Total Protein 5.6 g/dL (6.2-8.2)
[2021-03-30 11:33] LABS: Glucose,Whole Blood 296 mg/dL (75-99)
--- NOTE | 2021-03-30 11:52 | ECHOF ---
Referral Reason:SOB with activity MEASUREMENTS -------- HEIGHT: 160.0 cm WEIGHT: 54.9 kg BP: 99/66 IVSd: 1.3 cm (0.6 - 1.1) LVIDd: 4.0 cm (3.9 - 5.3) LVPWd: 1.1 cm (0.6 - 1.1) EDV(Teich): 72 ml IVSs: 1.6 cm LVIDs: 2.7 cm LVPWs: 1.5 cm %IVS Thck: 18 % ESV(Teich): 28 ml EF(Teich): 61 % %FS: 32 % SV(Teich): 44 ml RVIDd: 3.1 cm (< 3.3) IVC: 12.50 mm LALs A4C: 4.9 cm LAAs A4C: 13.8 cm LAESV A-L A4C: 33 ml LAESV MOD A4C: 29 ml LALs A2C: 4.5 cm LAAs A2C: 15.1 cm LAESV A-L A2C: 43 ml LAESV MOD A2C: 40 ml LAESV(A-L): 39 ml LAESV Index (A-L): 25.10 ml/m Ao Diam: 2.5 cm (2.0 - 3.7) LA Diam: 3.1 cm (2.7 - 3.8) AV Cusp: 1.9 cm (1.5 - 2.6) EPSS: 0.4 cm LVOT Vmax: 1.06 m/s LVOT maxP.51 mmHg AV Vmax: 1.17 m/s AV maxP.50 mmHg TR Vmax: 2.56 m/s TR maxP.27 mmHg RAP: 5.00 mmHg RVSP: 31.27 mmHg MV EF SLOPE: 97.80 mm/s (70 - 150) MV EXCURSION: 18.33 mm (> 18.000) FINDINGS -------- This was a technically adequate study. The left ventricular size is normal. There is mild concentric left ventricular hypertrophy. Overa ll left ventricular systolic function is low-normal with, an EF between 50 - 55 %. The right ventricle is normal in size. Normal LA size by volume 22+/-6 ml/m2. The right atrial size is normal. Interatrial and interventricular septum intact. The aortic valve is trileaflet and appears structurally normal. There is no evidence of aortic regu rgitation. There is no evidence of aortic stenosis. There is trace mitral regurgitation. Mild tricuspid regurgitation present. There is no evidence of pulmonary hypertension. The right v entricular systolic pressure, as measured by Doppler, is 31.27mmHg. There is no pulmonic regurgitation present. The aortic root size is normal. Normal inferior vena cava with normal inspiratory collapse consistent with estimated right atrial pre ssure of 5 mmHg. There is no pericardial effusion. CONCLUSIONS -------- 1. The left ventricular size is normal. 2. There is mild concentric left ventricular hypertrophy. 3. Overall left ventricular systolic function is low-normal with, an EF between 50 - 55 %. 4. There is trace mitral regurgitation. 5. Mild tricuspid regurgitation present. [employer]: Niya Henao HAIM
--- NOTE | 2021-03-30 14:10 | P.CONS ---
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 Discussed case with Dr Mendiola at [facility], who advised FOLFOX chemotherapy with Avastin. She stated feeling well, denies any abdominal pain, she is fully active. Zuly smoked 1 PPD X 20 years, quit 15 years ago, has 1 glass of wine daily Mother had Breast cancer (Negative genetic study). 07/27/20: Tolerated cycle#1 of FOLFOX chemotherapy well > had mild numbness in hands X 2 days > resolved. No Gi toxicities. 08/09/20: 10/04/20-Pt here today s/p 6/12 cycles of adjuvant FOLFOX. C/O mild sore throat and sore nasal passages, she used coconut oil and that helped. Neuropathy in hands the week of chemo, now only sensitive if exposed to cold, mild N, antiemetic works, no diarrhea or pain. Skin on hands is very dry and discolored, she noted a scant reddened rash on her extremities after using normal saline nasal spray, no more signs of rash after stopping NS nasal spray. She is noting some activity intolerance going up stairs. 10/19/20-patient is here today for acute visit. She is status post 10/09 cycles of adjuvant [id number]. She had a fever on Friday 101.3F, she took tylenol and it want away but then it came back again, she continued to medicate the fever throughout that day. She will went and saw her PCP who performed chest x-ray, peripheral blood cultures and urinary analysis. Her monocyte count was slightly elevated, mildly elevated creatinine, urine few bacteria, chest x-ray was n egative for acute process. Pt was prescribed levaquin and amoxicillin, she took her first dose yesterday it did make her nauseated. She had some pretty severe sweats last night. No fever today, still feeling pretty weak and tired. She feels she is drinking much better. She did not recover from this chemo cycle like she has the others. 10/25/20-patient is here today for follow-up. Seen last week for acute visit. Blood cultures from port and peripherally both returned negative. Patient is going to be completing dual antibiotic course with amoxicillin and Levaquin in the next couple of days. She is due to see Dr. Mendiola this week. Patient states today that she is feeling pretty good, his feeling more like herself, she was relieved that she didn't have to do treatment this week. Cycle 8 was due to start 2 days ago but, patient still on antibiotics yet so, this will be delayed until she sees Dr. Zhang next week. 11/01/20: Feels well, C/O fingers & hands irritation, numbness (hands) still minimal, completed 8 cycles of FOLFOX > CT Scan ([facility]) > improved 12/27/20: Feels well, no abdominal pain or symptoms. Completed 12 cycles of FOLFOX chemotherapy (Grade II P Neuropathy). stated neuropathy improved. 02/16/21: Feels Ok, CT Scan ([facility]) showed progression She is status Post FOLFIRI and MVASI cycle 1 on 03/20/21 Review of Systems All systems: negative Constitutional: Reports as per HPI Past Medical History Past Medical History: Asthma, Cancer, Diabetes Mellitus, Hypertension Additional Past Medical History / Comment(s): COVID 02/21/21 HOSPITALIZED OXYGEN AT HOME POST DISCHARGE, pt. started chemo for Ovarian CA, treatment on the Mar.20, spots on liver, wears 4L of 02 at home, DVT History of Any Multi-Drug Resistant Organisms: None Reported Past Surgical History: Appendectomy, Bowel Resection, Cardiac Ablation, Hysterectomy Additional Past Surgical History / Comment(s): Dec 2019 colectomy, appendectomy, hemorrhoirctomy Past Anesthesia/Blood Transfusion Reactions: No Reported Reaction Past Psychological History: No Psychological Hx Reported Smoking Status: Former smoker Past Alcohol Use History: Rare Additional Past Alcohol Use History / Comment(s): advised to stop with current chemo regime with positive understanding, smoke off and on 15 years. Start at age 15yearsold. Smoke 1/2 paked a day Past Drug Use History: None Reported - Past Family History Mother Family Medical History: CVA/TIA, Diabetes Mellitus, Hypertension Father Family Medical History: CVA/TIA, Diabetes Mellitus, Hypertension Additional Family Medical History / Comment(s): [place] Family Family Medical History: No Reported History Medications and Allergies Home Medications Medication Instructions Recorded Confirmed Type Atorvastatin [Lipitor] 20 mg PO HS 07/17/20 03/30/21 History Fluticasone/Salmeterol [Advair Hfa 2 puff INHALATION RT-BID 07/17/20 03/30/21 History 230-21 Mcg Inhaler] Losartan [Cozaar] 25 mg PO HS 07/17/20 03/30/21 History Montelukast [Singulair] 10 mg PO HS 07/17/20 03/30/21 History amLODIPine [Norvasc] 5 mg PO BID 07/17/20 03/30/21 History Ascorbic Acid [Vitamin C] 500 mg PO DAILY 03/23/21 03/30/21 History Benzonatate [Tessalon Perles] 100 mg PO TID 03/23/21 03/30/21 History LORazepam [Ativan] 0.5 mg PO TID PRN 03/23/21 03/30/21 History Zinc Gluconate [Zinc] 50 mg PO DAILY 03/23/21 03/30/21 History Albuterol Sulfate [Proair Hfa] 2 puff INHALATION RT-QID PRN 03/30/21 03/30/21 History Fluticasone Propionate [Flonase 2 spray EA NOSTRIL DAILY #9.9 ml 03/30/21 Rx Allergy Relief] metFORMIN HCL ER [Glucophage XR] 500 mg PO DAILY 03/30/21 03/30/21 History Allergies Allergy/AdvReac Type Severity Reaction Status Date / Time adhesive tape Allergy Unknown Verified 03/30/21 08:09 cat dander Allergy Unknown Verified 03/30/21 08:09 cephalexin [From Keflex] Allergy Unknown Verified 03/30/21 08:09 house dust Allergy Unknown Verified 03/30/21 08:09 Physical Exam Vitals: Vital Signs Temp Pulse Pulse Resp BP BP Pulse Ox 03/30/21 09:23 98.8 F 97 16 99/66 98 03/30/21 08:30 16 03/30/21 08:06 86 03/30/21 08:00 97.6 F 107 H 20 117/70 98 03/30/21 07:58 88 03/30/21 03:18 96 18 122/70 97 03/30/21 00:30 103 H 03/30/21 00:23 105 H 03/29/21 23:32 113 H 16 96 03/29/21 22:43 98.1 F 131 H 18 119/72 96 Intake and Output 03/29/21 03/30/21 03/30/21 22:59 06:59 14:59 Intake Total 450 Balance 450 Intake: Oral 450 Other: Weight 54.885 kg 54.885 kg Results CBC & Chem 7: 03/30/21 06:52 03/30/21 06:52 Labs: Abnormal Lab Results - Last 24 Hours (Table) 03/29/21 03/29/21 03/29/21 Range/Units 23:31 23:31 23:31 WBC (4.50-10.00) X 10*3/uL RBC 3.09 L (3.80-5.40) m/uL Hgb 9.0 L D (11.4-16.0) gm/dL Hct 29.6 L (34.0-46.0) % MCHC 30.4 L (31.0-37.0) g/dL RDW 19.3 H (11.5-15.5) % Plt Count 127 L (150-450) k/uL Absolute Nucleated RBC (0.00-0.00) X 10*3/uL Lymphocytes # (0.90-5.00) X 10*3/uL Monocytes # (0.20-1.00) X 10*3/uL Eosinophils # (0.04-0.35) X 10*3/uL Nucleated RBCs 3 H (0-0) /100 WBC NRBC/100 WBC Diff (0.0-0.0) /100 WBCS APTT 19.1 L (22.0-30.0) sec D-Dimer 6.34 H (<0.60) mg/L FEU Sodium 133 L (137-145) mmol/L Potassium 3.2 L (3.5-5.1) mmol/L Creatinine (0.6-1.5) mg/dL BUN/Creatinine Ratio (12.00-20.00) Ratio Glucose 209 H (74-99) mg/dL POC Glucose (mg/dL) (75-99) mg/dL Calcium 8.3 L (8.4-10.2) mg/dL AST 57 H (14-36) U/L ALT 61 H (4-34) U/L Lactate Dehydrogenase 896 H (313-618) U/L C-Reactive Protein 2.9 H (<1.0) mg/dL Total Protein 5.8 L (6.3-8.2) g/dL Albumin 3.2 L (3.5-5.0) g/dL Albumin/Globulin Ratio (1.60-3.17) g/dL 03/30/21 03/30/21 03/30/21 Range/Units 06:52 06:52 07:43 WBC 2.61 L (4.50-10.00) X 10*3/uL RBC 3.01 L (3.80-5.40) m/uL Hgb 8.8 L (11.4-16.0) gm/dL Hct 28.6 L (34.0-46.0) % MCHC 30.8 L (31.0-37.0) g/dL RDW 20.7 H (11.5-15.5) % Plt Count 102 L (150-450) k/uL Absolute Nucleated RBC 0.11 H (0.00-0.00) X 10*3/uL Lymphocytes # 0.35 L (0.90-5.00) X 10*3/uL Monocytes # 0.09 L (0.20-1.00) X 10*3/uL Eosinophils # 0 L (0.04-0.35) X 10*3/uL Nucleated RBCs (0-0) /100 WBC NRBC/100 WBC Diff 4.2 H (0.0-0.0) /100 WBCS APTT (22.0-30.0) sec D-Dimer (<0.60) mg/L FEU Sodium (137-145) mmol/L Potassium (3.5-5.1) mmol/L Creatinine 0.5 L (0.6-1.5) mg/dL BUN/Creatinine Ratio 26.60 H (12.00-20.00) Ratio Glucose 245 H (74-99) mg/dL POC Glucose (mg/dL) 243 H (75-99) mg/dL Calcium 8.2 L (8.4-10.2) mg/dL AST 46 H (14-36) U/L ALT 60 H (4-34) U/L Lactate Dehydrogenase (313-618) U/L C-Reactive Protein (<1.0) mg/dL Total Protein 5.6 L (6.3-8.2) g/dL Albumin 3.4 L (3.5-5.0) g/dL Albumin/Globulin Ratio 1.55 L (1.60-3.17) g/dL 03/30/ Range/Units 11:31 WBC (4.50-10.00) X 10*3/uL RBC (3.80-5.40) m/uL Hgb (11.4-16.0) gm/dL Hct (34.0-46.0) % MCHC (31.0-37.0) g/dL RDW (11.5-15.5) % Plt Count (150-450) k/uL Absolute Nucleated RBC (0.00-0.00) X 10*3/uL Lymphocytes # (0.90-5.00) X 10*3/uL Monocytes # (0.20-1.00) X 10*3/uL Eosinophils # (0.04-0.35) X 10*3/uL Nucleated RBCs (0-0) /100 WBC NRBC/100 WBC Diff (0.0-0.0) /100 WBCS APTT (22.0-30.0) sec D-Dimer (<0.60) mg/L FEU Sodium (137-145) mmol/L Potassium (3.5-5.1) mmol/L Creatinine (0.6-1.5) mg/dL BUN/Creatinine Ratio (12.00-20.00) Ratio Glucose (74-99) mg/dL POC Glucose (mg/dL) 296 H (75-99) mg/dL Calcium (8.4-10.2) mg/dL AST (14-36) U/L ALT (4-34) U/L Lactate Dehydrogenase (313-618) U/L C-Reactive Protein (<1.0) mg/dL Total Protein (6.3-8.2) g/dL Albumin (3.5-5.0) g/dL Albumin/Globulin Ratio (1.60-3.17) g/dL CT scan - chest: report reviewed Assessment and Plan (1) Metastatic colon cancer in female Current Visit: Yes Status: Acute Code(s): C18.9 - MALIGNANT NEOPLASM OF COLON, UNSPECIFIED SNOMED Code(s): 196001094 (2) Acute exacerbation of chronic obstructive pulmonary disease (COPD) Current Visit: Yes Status: Acute Code(s): J44.1 - CHRONIC OBSTRUCTIVE PULMONARY DISEASE W (ACUTE) EXACERBATION SNOMED Code(s): 562469923 Plan: Assessment and Recommendations: Metastatic Colon Cancer: - Recent Progression - Status Post Second Line treatment with FOLFIRI and MVASI (ANTI-ANGIOGENESIS which places risk of bleeding and if surgical procedure needed) on 03/20 Acute Respiratory insufficiency: - CTA without PE Epistaxis: - Likely combination from antiangiogenesis and O2 - ENT and pulm following
[2021-03-30 16:48] LABS: Glucose,Whole Blood 253 mg/dL (75-99)
--- NOTE | 2021-03-30 17:12 | P.PN ---
<Royal Mendez - Last Filed: 03/30/21 16:42> Subjective Progress Note Date: 03/30/21 Hospital course: Patient is a very pleasant 55-year-old female currently undergoing chemotherapy treatments for ovarian cancer and status post recent infection with Covid 19 virus infection on home oxygen.. Patient reports she was hospitalized with Covid at [facility] from 02/22/21-03/11/21 when she was discharged home on 4 L of oxygen. Patient reports she has been wearing oxygen intermittently at home, but does not wear at all times. Patient states that her biggest problem since previous diagnosis with Covid has been activity intolerance and shortness of breath with exertion. Patient she waited a short while after being discharged from hospital to resume her chemotherapy treatments. Patient reports after discharge on 03/11/21 she resumed chemotherapy on 03/20/21. Patient reports since resuming chemotherapy her shortness of breath with exertion and fatigue has worsened. Patient reports she can barely ambulate to and from restroom due to excess fatigue and increased SOB. She also reports that in addition to the increased fatigue and shortness of breath she has had recurrent nosebleeds. Patient reports she has been seen multiple times for her nosebleeds and was informed that it is likely due to oxygen use. She denies any traumas or injuries. Physical exam: Vital signs reviewed and stable. General: Nontoxic, no distress and appears stated age. Derm: Skin warm and dry, normal coloration for ethnicity. Head: Atraumatic, normocephalic and symmetric. Eyes: EOMs intact, no lid lag, and anicteric sclera Mouth: no lip lesions, mucus membranes moist Cardiovascular: regular rate and rhythm with normal S1S2, no murmur, positive posterior tibial pulses bilaterally, and cap refill < 2 seconds. Lungs: Respirations even, regular, and unlabored on room air. Lungs CTA bilaterally, no rhonchi, no rales, no wheezing, and no accessory muscle usage. Abdominal: soft, nontender to palpation, no guarding, no appreciable organomegaly Ext: ROM intact. No gross muscle atrophy, no edema, no contractures Neuro: Speech clear, face symmetrical and CN II-XII grossly intact with no noted focal neuro deficits Psych: Alert and oriented to person, place, time, and situation. Appropriate and pleasant affect. Assessment and Plan of Care: Epistaxis Anemia, secondary to antineoplastic chemotherapeutic medications and recurrent nosebleeds -Hemoglobin stable -Aspiration precautions -Continue to monitor with repeat a.m. 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 -CTA negative for PE showing patchy bilateral pulmonary infiltrates possibly secondary to chronic interstitial pneumonia -EKG showing sinus tachycardia at 111 bpm with no noted T-wave or ST abnormalities. -Echocardiogram completed revealing an EF of 50-55% with no significant valvular abnormalities. -Continue Oxygenation to be administered and titrated as needed to maintain SPO2 equal to or greater than 92% -Telemetry monitoring. -Monitor Pulse-oximetry -Duonebs as needed for SOB and/or wheezing -Incentive Spirometry Ovarian cancer currently undergoing chemotherapy -Continue to follow up outpatient with oncology, Dr. Alonso with [facility] at [facility] in [place] for scheduled follow up appointments and continued chemotherapy treatments. Type II [id number] diabetes mellitus -Hold Glucophage and continue glycemic protocol with NovoLog sliding scale. CODE STATUS: Full code DVT prophylaxis: SCDs Discussed with: Patient and RN Anticipated discharge date: Tomorrow morning Anticipated discharge place: home A total of 45 minutes was spent on the care of this complex patient more than 50% of the time was spent in counseling and care coordination. Objective - Vital Signs Vital signs: Vital Signs Temp 98.7 F 03/30/21 14:00 Pulse 103 H 03/30/21 14:00 Resp 18 03/30/21 14:00 BP 125/80 03/30/21 14:00 Pulse Ox 98 03/30/21 14:00 Intake & Output 03/29/21 03/30/21 03/30/21 18:59 06:59 18:59 Intake Total 450 Balance 450 Weight 54.885 kg Intake: Oral 450 - Labs CBC & Chem 7: 03/30/21 06:52 03/30/21 06:52 Labs: Abnormal Lab Results - Last 24 Hours (Table) 03/29/21 03/29/21 03/29/21 Range/Units 23:31 23:31 23:31 WBC (4.50-10.00) X 10*3/uL RBC 3.09 L (3.80-5.40) m/uL Hgb 9.0 L D (11.4-16.0) gm/dL Hct 29.6 L (34.0-46.0) % MCHC 30.4 L (31.0-37.0) g/dL RDW 19.3 H (11.5-15.5) % Plt Count 127 L (150-450) k/uL Absolute Nucleated RBC (0.00-0.00) X 10*3/uL Lymphocytes # (0.90-5.00) X 10*3/uL Monocytes # (0.20-1.00) X 10*3/uL Eosinophils # (0.04-0.35) X 10*3/uL Nucleated RBCs 3 H (0-0) /100 WBC NRBC/100 WBC Diff (0.0-0.0) /100 WBCS APTT 19.1 L (22.0-30.0) sec D-Dimer 6.34 H (<0.60) mg/L FEU Sodium 133 L (137-145) mmol/L Potassium 3.2 L (3.5-5.1) mmol/L Creatinine (0.6-1.5) mg/dL BUN/Creatinine Ratio (12.00-20.00) Ratio Glucose 209 H (74-99) mg/dL POC Glucose (mg/dL) (75-99) mg/dL Calcium 8.3 L (8.4-10.2) mg/dL AST 57 H (14-36) U/L ALT 61 H (4-34) U/L Lactate Dehydrogenase 896 H (313-618) U/L C-Reactive Protein 2.9 H (<1.0) mg/dL Total Protein 5.8 L (6.3-8.2) g/dL Albumin 3.2 L (3.5-5.0) g/dL Albumin/Globulin Ratio (1.60-3.17) g/dL 03/30/21 03/30/21 03/30/21 Range/Units 06:52 06:52 07:43 WBC 2.61 L (4.50-10.00) X 10*3/uL RBC 3.01 L (3.80-5.40) m/uL Hgb 8.8 L (11.4-16.0) gm/dL Hct 28.6 L (34.0-46.0) % MCHC 30.8 L (31.0-37.0) g/dL RDW 20.7 H (11.5-15.5) % Plt Count 102 L (150-450) k/uL Absolute Nucleated RBC 0.11 H (0.00-0.00) X 10*3/uL Lymphocytes # 0.35 L (0.90-5.00) X 10*3/uL Monocytes # 0.09 L (0.20-1.00) X 10*3/uL Eosinophils # 0 L (0.04-0.35) X 10*3/uL Nucleated RBCs (0-0) /100 WBC NRBC/100 WBC Diff 4.2 H (0.0-0.0) /100 WBCS APTT (22.0-30.0) sec D-Dimer (<0.60) mg/L FEU Sodium (137-145) mmol/L Potassium (3.5-5.1) mmol/L Creatinine 0.5 L (0.6-1.5) mg/dL BUN/Creatinine Ratio 26.60 H (12.00-20.00) Ratio Glucose 245 H (74-99) mg/dL POC Glucose (mg/dL) 243 H (75-99) mg/dL Calcium 8.2 L (8.4-10.2) mg/dL AST 46 H (14-36) U/L ALT 60 H (4-34) U/L Lactate Dehydrogenase (313-618) U/L C-Reactive Protein (<1.0) mg/dL Total Protein 5.6 L (6.3-8.2) g/dL Albumin 3.4 L (3.5-5.0) g/dL Albumin/Globulin Ratio 1.55 L (1.60-3.17) g/dL 03/30/21 Range/Units 11:31 WBC (4.50-10.00) X 10*3/uL RBC (3.80-5.40) m/uL Hgb (11.4-16.0) gm/dL Hct (34.0-46.0) % MCHC (31.0-37.0) g/dL RDW (11.5-15.5) % Plt Count (150-450) k/uL Absolute Nucleated RBC (0.00-0.00) X 10*3/uL Lymphocytes # (0.90-5.00) X 10*3/uL Monocytes # (0.20-1.00) X 10*3/uL Eosinophils # (0.04-0.35) X 10*3/uL Nucleated RBCs (0-0) /100 WBC NRBC/100 WBC Diff (0.0-0.0) /100 WBCS APTT (22.0-30.0) sec D-Dimer (<0.60) mg/L FEU Sodium (137-145) mmol/L Potassium (3.5-5.1) mmol/L Creatinine (0.6-1.5) mg/dL BUN/Creatinine Ratio (12.00-20.00) Ratio Glucose (74-99) mg/dL POC Glucose (mg/dL) 296 H (75-99) mg/dL Calcium (8.4-10.2) mg/dL AST (14-36) U/L ALT (4-34) U/L Lactate Dehydrogenase (313-618) U/L C-Reactive Protein (<1.0) mg/dL Total Protein (6.3-8.2) g/dL Albumin (3.5-5.0) g/dL Albumin/Globulin Ratio (1.60-3.17) g/dL <Helen Andrade - Last Filed: 03/30/21 20:37> Subjective Seen by my partner after midnight. No billing associated with this note. Objective - Vital Signs Vital signs: Vital Signs Temp 98.7 F 03/30/21 14:00 Pulse 103 H 03/30/21 14:00 Resp 18 03/30/21 14:00 BP 125/80 03/30/21 14:00 Pulse Ox 98 03/30/21 14:00 Intake & Output 03/30/21 03/30/21 03/31/21 06:59 18:59 06:59 Intake Total 700 Output Total 400 Balance 300 Weight 54.885 kg Intake: Oral 700 Output: Urine 400 - Labs CBC & Chem 7: 03/30/21 06:52 03/30/21 06:52 Labs: Abnormal Lab Results - Last 24 Hours (Table) 03/29/21 03/29/21 03/29/21 Range/Units 23:31 23:31 23:31 WBC (4.50-10.00) X 10*3/uL RBC 3.09 L (3.80-5.40) m/uL Hgb 9.0 L D (11.4-16.0) gm/dL Hct 29.6 L (34.0-46.0) % MCHC 30.4 L (31.0-37.0) g/dL RDW 19.3 H (11.5-15.5) % Plt Count 127 L (150-450) k/uL Absolute Nucleated RBC (0.00-0.00) X 10*3/uL Lymphocytes # (0.90-5.00) X 10*3/uL Monocytes # (0.20-1.00) X 10*3/uL Eosinophils # (0.04-0.35) X 10*3/uL Nucleated RBCs 3 H (0-0) /100 WBC NRBC/100 WBC Diff (0.0-0.0) /100 WBCS APTT 19.1 L (22.0-30.0) sec D-Dimer 6.34 H (<0.60) mg/L FEU Sodium 133 L (137-145) mmol/L Potassium 3.2 L (3.5-5.1) mmol/L Creatinine (0.6-1.5) mg/dL BUN/Creatinine Ratio (12.00-20.00) Ratio Glucose 209 H (74-99) mg/dL POC Glucose (mg/dL) (75-99) mg/dL Calcium 8.3 L (8.4-10.2) mg/dL AST 57 H (14-36) U/L ALT 61 H (4-34) U/L Lactate Dehydrogenase 896 H (313-618) U/L C-Reactive Protein 2.9 H (<1.0) mg/dL Total Protein 5.8 L (6.3-8.2) g/dL Albumin 3.2 L (3.5-5.0) g/dL Albumin/Globulin Ratio (1.60-3.17) g/dL 03/30/21 03/30/21 03/30/21 Range/Units 06:52 06:52 07:43 WBC 2.61 L (4.50-10.00) X 10*3/uL RBC 3.01 L (3.80-5.40) m/uL Hgb 8.8 L (11.4-16.0) gm/dL Hct 28.6 L (34.0-46.0) % MCHC 30.8 L (31.0-37.0) g/dL RDW 20.7 H (11.5-15.5) % Plt Count 102 L (150-450) k/uL Absolute Nucleated RBC 0.11 H (0.00-0.00) X 10*3/uL Lymphocytes # 0.35 L (0.90-5.00) X 10*3/uL Monocytes # 0.09 L (0.20-1.00) X 10*3/uL Eosinophils # 0 L (0.04-0.35) X 10*3/uL Nucleated RBCs (0-0) /100 WBC NRBC/100 WBC Diff 4.2 H (0.0-0.0) /100 WBCS APTT (22.0-30.0) sec D-Dimer (<0.60) mg/L FEU Sodium (137-145) mmol/L Potassium (3.5-5.1) mmol/L Creatinine 0.5 L (0.6-1.5) mg/dL BUN/Creatinine Ratio 26.60 H (12.00-20.00) Ratio Glucose 245 H (74-99) mg/dL POC Glucose (mg/dL) 243 H (75-99) mg/dL Calcium 8.2 L (8.4-10.2) mg/dL AST 46 H (14-36) U/L ALT 60 H (4-34) U/L Lactate Dehydrogenase (313-618) U/L C-Reactive Protein (<1.0) mg/dL Total Protein 5.6 L (6.3-8.2) g/dL Albumin 3.4 L (3.5-5.0) g/dL Albumin/Globulin Ratio 1.55 L (1.60-3.17) g/dL 03/30/21 03/30/21 03/30/21 Range/Units 11:31 16:42 20:18 WBC (4.50-10.00) X 10*3/uL RBC (3.80-5.40) m/uL Hgb (11.4-16.0) gm/dL Hct (34.0-46.0) % MCHC (31.0-37.0) g/dL RDW (11.5-15.5) % Plt Count (150-450) k/uL Absolute Nucleated RBC (0.00-0.00) X 10*3/uL Lymphocytes # (0.90-5.00) X 10*3/uL Monocytes # (0.20-1.00) X 10*3/uL Eosinophils # (0.04-0.35) X 10*3/uL Nucleated RBCs (0-0) /100 WBC NRBC/100 WBC Diff (0.0-0.0) /100 WBCS APTT (22.0-30.0) sec D-Dimer (<0.60) mg/L FEU Sodium (137-145) mmol/L Potassium (3.5-5.1) mmol/L Creatinine (0.6-1.5) mg/dL BUN/Creatinine Ratio (12.00-20.00) Ratio Glucose (74-99) mg/dL POC Glucose (mg/dL) 296 H 253 H 220 H (75-99) mg/dL Calcium (8.4-10.2) mg/dL AST (14-36) U/L ALT (4-34) U/L Lactate Dehydrogenase (313-618) U/L C-Reactive Protein (<1.0) mg/dL Total Protein (6.3-8.2) g/dL Albumin (3.5-5.0) g/dL Albumin/Globulin Ratio (1.60-3.17) g/dL
--- NOTE | 2021-03-30 17:15 | P.CNPUL ---
History of Present Illness Consult date: 03/30/21 Reason for consult: dyspnea, pneumonia History of present illness: 55-year-old female patient, came into the emergency department because of no sebleeds and she was further evaluate this with some shortness of breath and weakness. The patient persistent cough and congestion in her lungs and some weakness. She had also diminished activity level. Mother the patient was infected with COVID 19 virus approximately a month ago and this was repeated in the burst department of the repeat testing came back negative. The patient is known to have adenocarcinoma of the colon was diagnosed back in September 2018 and she underwent surgery in December 2019 which involved debulking surgery and bowel resection with end-to-end anastomosis and following that the patient was treated with systemic treatment including Avastin and FOLFOX. She hasn't followed up with oncology. During the course of her illness, she experienced some neuropathy related to systemic chemotherapy. She completed total of 12 cycles of FOLFOX. She was clinically responding and the CAT scan was also showing some improvement. Subsequent follow-up showed progression of her disease and the patient was started on second line treatment per oncology as of 03/20/2021. For now, the patient is showing a white cell count of 2.6 with a hemoglobin 8.8 and platelet count of 102, the absolute neutrophil count was above 2, coagulation profile was normal, d-dimer was at 6.34 and the CTA Showed no evidence of any pulmonary embolism. Electrolytes are normal, renal function is normal, LFTs are mildly elevated with an AST of 46, ALT of 60 with an alkaline phosphatase of 91, albumin is at 3.4 with a total protein of 5.6 and a calcium level of 8.2. Blood sugar is elevated. I reviewed the most current CAT scan of the chest and there is peripheral distributed pulmonary infiltrates which could be postcoital changes. No previous CAT scan imaging for comparison. Review of Systems Constitutional: Reports fatigue Eyes: denies as per HPI, denies blurred vision, denies bulging eye, denies decreased vision, denies diplopia, denies discharge, denies dry eye, denies irritation, denies itching, denies pain, denies photophobia, denies loss of peripheral vision, denies loss of vision, denies tunnel vision/blind spots Ears: deny: decreased hearing, ear discharge, earache, tinnitus Ears, nose, mouth and throat: Reports as per HPI, Reports epistaxis Breasts: absent: as per HPI, change in shape, gynecomastia, masses, nipple discharge, pain, skin changes, swelling Cardiovascular: Reports decreased exercise tolerance, Reports dyspnea on exertion Respiratory: Reports cough Gastrointestinal: Reports as per HPI Genitourinary: Reports as per HPI Menstruation: Reports as per HPI Musculoskeletal: Reports as per HPI Musculoskeletal: absent: ankle pain, ankle stiffness, ankle swelling Integumentary: Reports as per HPI Neurological: Reports as per HPI, Reports numbness, Reports paresthesias Psychiatric: Reports as per HPI Endocrine: Reports as per HPI Hematologic/Lymphatic: Reports as per HPI, Reports easy bleeding Past Medical History Past Medical History: Asthma, Cancer, Diabetes Mellitus, Hypertension Additional Past Medical History / Comment(s): COVID 02/21/21 HOSPITALIZED OXYGEN AT HOME POST DISCHARGE, pt. started chemo for colon adenocarcinoma CA, treatment on the Mar.20, spots on liver, wears 4L of 02 at home, DVT History of Any Multi-Drug Resistant Organisms: None Reported Past Surgical History: Appendectomy, Bowel Resection, Cardiac Ablation, Hysterectomy Additional Past Surgical History / Comment(s): Dec 2019 colectomy, appendectomy, hemorrhoirctomy Past Anesthesia/Blood Transfusion Reactions: No Reported Reaction Past Psychological History: No Psychological Hx Reported Smoking Status: Former smoker Past Alcohol Use History: Rare Additional Past Alcohol Use History / Comment(s): advised to stop with current chemo regime with positive understanding, smoke off and on 15 years. Start at age 15yearsold. Smoke 1/2 paked a day Past Drug Use History: None Reported - Past Family History Mother Family Medical History: CVA/TIA, Diabetes Mellitus, Hypertension Father Family Medical History: CVA/TIA, Diabetes Mellitus, Hypertension Additional Family Medical History / Comment(s): [place] Family Family Medical History: No Reported History Medications and Allergies Home Medications Medication Instructions Recorded Confirmed Type Atorvastatin [Lipitor] 20 mg PO HS 07/17/20 03/30/21 History Fluticasone/Salmeterol [Advair Hfa 2 puff INHALATION RT-BID 07/17/20 03/30/21 History 230-21 Mcg Inhaler] Losartan [Cozaar] 25 mg PO HS 07/17/20 03/30/21 History Montelukast [Singulair] 10 mg PO HS 07/17/20 03/30/21 History amLODIPine [Norvasc] 5 mg PO BID 07/17/20 03/30/21 History Ascorbic Acid [Vitamin C] 500 mg PO DAILY 03/23/21 03/30/21 History Benzonatate [Tessalon Perles] 100 mg PO TID 03/23/21 03/30/21 History LORazepam [Ativan] 0.5 mg PO TID PRN 03/23/21 03/30/21 History Zinc Gluconate [Zinc] 50 mg PO DAILY 03/23/21 03/30/21 History Albuterol Sulfate [Proair Hfa] 2 puff INHALATION RT-QID PRN 03/30/21 03/30/21 Hi story Fluticasone Propionate [Flonase 2 spray EA NOSTRIL DAILY #9.9 ml 03/30/21 Rx Allergy Relief] metFORMIN HCL ER [Glucophage XR] 500 mg PO DAILY 03/30/21 03/30/21 History Allergies Allergy/AdvReac Type Severity Reaction Status Date / Time adhesive tape Allergy Unknown Verified 03/30/21 08:09 cat dander Allergy Unknown Verified 03/30/21 08:09 cephalexin [From Keflex] Allergy Unknown Verified 03/30/21 08:09 house dust Allergy Unknown Verified 03/30/21 08:09 Physical Exam Vitals: Vital Signs Temp Pulse Pulse Resp BP BP Pulse Ox 03/30/21 14:00 98.7 F 103 H 18 125/80 98 03/30/21 09:23 98.8 F 97 16 99/66 98 03/30/21 08:30 16 03/30/21 08:06 86 03/30/21 08:00 97.6 F 107 H 20 117/70 98 03/30/21 07:58 88 03/30/21 03:18 96 18 122/70 97 03/30/21 00:30 103 H 03/30/21 00:23 105 H 03/29/21 23:32 113 H 16 96 03/29/21 22:43 98.1 F 131 H 18 119/72 96 Intake and Output 03/30/21 03/30/21 03/30/21 06:59 14:59 22:59 Intake Total 450 Balance 450 Intake: Oral 450 Other: Weight 54.885 kg General appearance: alert, in no apparent distress, anxious Head exam: Present: atraumatic, normocephalic, normal inspection Eye exam: Present: normal appearance, PERRL, EOMI. Absent: scleral icterus, conjunctival injection, periorbital swelling ENT exam: Present: normal exam, mucous membranes moist Neck exam: Present: normal inspection. Absent: tenderness, meningismus, lymphadenopathy Respiratory exam: Present: respiratory distress, wheezes, decreased breath sounds, prolonged expiratory. Absent: rales, rhonchi, stridor Cardiovascular Exam: Present: normal rhythm, tachycardia, normal heart sounds. Absent: systolic murmur, diastolic murmur, rubs, gallop, clicks GI/Abdominal exam: Present: soft, normal bowel sounds. Absent: distended, tenderness, guarding, rebound, rigid Extremities exam: Present: normal inspection, full ROM, normal capillary refill. Absent: tenderness, pedal edema, joint swelling, calf tenderness Back exam: Present: normal inspection Neurological exam: Present: alert, oriented X3, CN II-XII intact Psychiatric exam: Present: normal affect, normal mood Skin exam: Present: warm, dry, intact, normal color. Absent: rash Results - Laboratory Findings CBC and BMP: 03/30/21 06:52 03/30/21 06:52 PT/INR, D-dimer PT 10.3 sec (9.0-12.0) 03/29/21 23:31 INR 1.0 (<1.2) 03/29/21 23:31 D-Dimer 6.34 mg/L FEU (<0.60) H 03/29/21 23:31 Abnormal lab findings: Abnormal Labs 03/29/21 03/29/21 03/29/21 23:31 23:31 23:31 WBC RBC 3.09 L Hgb 9.0 L D Hct 29.6 L MCHC 30.4 L RDW 19.3 H Plt Count 127 L Absolute Nucleated RBC Lymphocytes # Monocytes # Eosinophils # Nucleated RBCs 3 H NRBC/100 WBC Diff APTT 19.1 L D-Dimer 6.34 H Sodium 133 L Potassium 3.2 L Creatinine BUN/Creatinine Ratio Glucose 209 H POC Glucose (mg/dL) Calcium 8.3 L AST 57 H ALT 61 H Lactate Dehydrogenase 896 H C-Reactive Protein 2.9 H Total Protein 5.8 L Albumin 3.2 L Albumin/Globulin Ratio 1203/30/21 03/30/21 06:52 06:52 07:43 WBC 2.61 L RBC 3.01 L Hgb 8.8 L Hct 28.6 L MCHC 30.8 L RDW 20.7 H Plt Count 102 L Absolute Nucleated RBC 0.11 H Lymphocytes # 0.35 L Monocytes # 0.09 L Eosinophils # 0 L Nucleated RBCs NRBC/100 WBC Diff 4.2 H APTT D-Dimer Sodium Potassium Creatinine 0.5 L BUN/Creatinine Ratio 26.60 H Glucose 245 H POC Glucose (mg/dL) 243 H Calcium 8.2 L AST 46 H ALT 60 H Lactate Dehydrogenase C-Reactive Protein Total Protein 5.6 L Albumin 3.4 L Albumin/Globulin Ratio 1.55 L 03/30/21 11:31 WBC RBC Hgb Hct MCHC RDW Plt Count Absolute Nucleated RBC Lymphocytes # Monocytes # Eosinophils # Nucleated RBCs NRBC/100 WBC Diff APTT D-Dimer Sodium Potassium Creatinine BUN/Creatinine Ratio Glucose POC Glucose (mg/dL) 296 H Calcium AST ALT Lactate Dehydrogenase C-Reactive Protein Total Protein Albumin Albumin/Globulin Ratio - Diagnostic Findings Chest x-ray: image reviewed CT scan - chest: image reviewed Assessment and Plan Plan: 1 acute epistaxis, currently inactive and stable. The patient has a hemoglobin of 8.8 with thrombocytopenia, likely chemotherapy-induced pancytopenia contributing to her epistaxis. Rest of the correlation profile is normal, the epistaxis is most likely secondary to ongoing oxygen use which is Reviewed to Nasal Dryness and Combination with Underlying Thrombocytopenia. 2 bilateral pulmonary infiltrates, residual of previous COVID 19 related pneumonia/infection. No active pneumonia at this point in time. The patient was at [facility] back in January 2021 for COVID 19 infection and the patient was discharged home on 4 l by nasal cannula. Her repeat COVID 19 testing is negative. No evidence of any pulmonary embolism based on CT angiogram. 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 9 hyperlipidemia 10 abnormal LFTs, likely secondary to liver metastases Plan Monitor hematologic profile Watch for epistaxis and recurrent consult ENT The Oxygen Flow to 2 L of Humidified Oxygen Source to Prevent Any Epistaxis The repeat COVID 19 testing is been negative and the chest CT is essentially showing some residual pulmonary infiltration secondary to her previously described COVID 19 infection. Overall condition is stable and the patient can be discharged home as long as there is no further episodes of epistaxis. No need for systemic steroids at this point in time. IV Solu Medrol was discontinued especially that the patient has taken recent systemic chemotherapy and IV Solu Medrol is going to contribute for further immunosuppression. I would suggest discontinuing the IV Solu-Medrol altogether and there is no need for systemic steroids. Monitor hematologic profile. Patient can be discharged home with the next 24 hours if there is no change in her condition.
[2021-03-30 20:20] LABS: Glucose,Whole Blood 220 mg/dL (75-99)
[2021-03-31 07:39] LABS: Glucose,Whole Blood 216 mg/dL (75-99)
[2021-03-31] MEDS: SYMBICORT 160-4.5 MCG INHALER INHALATION SCH (07:56)
[2021-03-31] MEDS: ALBUTEROL NEBULIZED 2.5 MG/3 ML INHALATION SCH ×3 (07:56→15:40)
[2021-03-31 08:01] VITALS: BP 117/79; RESP 20; TEMP 97.5
[2021-03-31] MEDS: amLODIPine 5 MG TAB PO SCH (10:07)
[2021-03-31] MEDS: BENZONATATE 100 MG CAP PO SCH ×2 (10:07→16:30)
[2021-03-31] MEDS: INSULIN ASPART (NovoLOG) 100 UNIT/ML VIAL SQ SCH ×2 (10:07→13:32)
[2021-03-31 11:38] LABS: Glucose,Whole Blood 224 mg/dL (75-99)
--- NOTE | 2021-03-31 11:42 | P.PN ---
Subjective Progress Note Date: 03/31/21 55-year-old female patient, came into the emergency department because of nosebleeds and she was further evaluate this with some shortness of breath and weakness. The patient persistent cough and congestion in her lungs and some weakness. She had also diminished activity level. Mother the patient was infected with COVID 19 virus approximately a month ago and this was repeated in the burst department of the repeat testing came back negative. The patient is known to have adenocarcinoma of the colon was diagnosed back in September 2018 and she underwent surgery in December 2019 which involved debulking surgery and bowel resection with end-to-end anastomosis and following that the patient was treated with systemic treatment including Avastin and FOLFOX. She hasn't followed up with oncology. During the course of her illness, she experienced some neuropathy related to systemic chemotherapy. She completed total of 12 cycles of FOLFOX. She was clinically responding and the CAT scan was also showing some improvement. Subsequent follow-up showed progression of her disease and the patient was started on second line treatment per oncology as of 03/20/2021. For now, the patient is showing a white cell count of 2.6 with a hemoglobin 8.8 and platelet count of 102, the absolute neutrophil count was above 2, coagulation profile was normal, d-dimer was at 6.34 and the CTA Showed no evidence of any pulmonary embolism. Electrolytes are normal, renal function is normal, LFTs are mildly elevated with an AST of 46, ALT of 60 with an alkaline phosphatase of 91, albumin is at 3.4 with a total protein of 5.6 and a calcium level of 8.2. Blood sugar is elevated. I reviewed the most current CAT scan of the chest and there is peripheral distributed pulmonary infiltrates which could be postcoital changes. No previous CAT scan imaging for comparison. The patient is seen today 03/31/2021 in follow-up on the regular medical floor. She is up ambulating in her room. Awake and alert in no acute distress. No further epistaxis. Maintaining good O2 saturations in the 90s on room air. No shortness of breath, cough or congestion. She is continued on Symbicort, Singulair and albuterol. Blood glucose 224. Objective - Vital Signs Vital signs: Vital Signs Temp 97.5 F L 03/31/21 08:00 Pulse 113 H 03/31/21 08:00 Resp 20 03/31/21 08:00 BP 117/79 03/31/21 08:00 Pulse Ox 93 L 03/31/21 08:00 Intake & Output 03/30/21 03/31/21 03/31/21 18:59 06:59 18:59 Intake Total 700 Output Total 400 Balance 300 Intake: Oral 700 Output: Urine 400 - Exam General appearance: alert, pleasant 55-year-old female patient, on room air, in no apparent distress, anxious Head exam: Present: atraumatic, normocephalic, normal inspection Eye exam: Present: normal appearance, PERRL, EOMI. Absent: scleral icterus, conjunctival injection, periorbital swelling ENT exam: Present: normal exam, mucous membranes moist Neck exam: Present: normal inspection. Absent: tenderness, meningismus, lymphadenopathy Respiratory exam: Present: respiratory distress, wheezes, decreased breath sounds, prolonged expiratory. Absent: rales, rhonchi, stridor Cardiovascular Exam: Present: normal rhythm, tachycardia, normal heart sounds. Absent: systolic murmur, diastolic murmur, rubs, gallop, clicks GI/Abdominal exam: Present: soft, normal bowel sounds. Absent: distended, tenderness, guarding, rebound, rigid Extremities exam: Present: normal inspection, full ROM, normal capillary refill. Absent: tenderness, pedal edema, joint swelling, calf tenderness Back exam: Present: normal inspection Neurological exam: Present: alert, oriented X3, CN II-XII intact Psychiatric exam: Present: normal affect, normal mood Skin exam: Present: warm, dry, intact, normal color. Absent: rash - Labs CBC & Chem 7: 03/30/21 06:52 03/30/21 06:52 Labs: Abnormal Lab Results - Last 24 Hours (Table) 03/30/21 03/30/21 03/31/21 Range/Units 16:42 20:18 07:38 POC Glucose (mg/dL) 253 H 220 H 216 H (75-99) mg/dL 03/31/21 Range/Units 11:36 POC Glucose (mg/dL) 224 H (75-99) mg/dL Assessment and Plan Assessment: 1 acute epistaxis, currently inactive and stable. The patient has a hemoglobin of 8.8 with thrombocytopenia, likely chemotherapy-induced pancytopenia contributing to her epistaxis. Rest of the correlation profile is normal, the epistaxis is most likely secondary to ongoing oxygen use which is contributing to Nasal Dryness and Combination with Underlying Thrombocytopenia. 2 bilateral pulmonary infiltrates, residual of previous COVID 19 related pneumonia/infection. No active pneumonia at this point in time. The patient was at [facility] back in January 2021 for COVID 19 infection and the patient was discharged home on 4 l by nasal cannula. Her repeat COVID 19 testing is negative. No evidence of any pulmonary embolism based on CT angiogram. 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 9 hyperlipidemia 10 abnormal LFTs, likely secondary to liver metastases Plan The patient was seen and evaluated No further epistaxis Good for discharge from the pulmonary standpoint Stable and on room air I, the cosigning physician, performed a history & physical examination of the patient. Lungs sounds are clear. Maintaining good O2 saturations in the 90s on room air. I discussed the assessment and plan of care with my nurse practitioner, Crystal Mcdaniel. I attest to the above note as dictated by her.
[2021-03-31 12:05] LABS: ALT 48 U/L (4-34); AST 40 U/L (14-36); African American GFR (CKD) >90 (>60 ml/min/1.73 sqM); Albumin 3.6 g/dL (3.5-5.0); Albumin/Globulin Ratio 1.3; Alkaline Phosphatase 102 U/L (38-126); Anion Gap 10 mmol/L; Blood Urea Nitrogen 21 mg/dL (7-17); Calcium 8.9 mg/dL (8.4-10.2); Carbon Dioxide 23 mmol/L (22-30); Chloride 103 mmol/L (98-107); Globulin 2.7 g/dL; Glucose 219 mg/dL (74-99); Non-African American GFR(CKD) >90 (>60 ml/min/1.73 sqM); Potassium 4.2 mmol/L (3.5-5.1); Sodium 136 mmol/L (137-145); Total Bilirubin 0.6 mg/dL (0.2-1.3); Total Protein 6.3 g/dL (6.3-8.2)
--- NOTE | 2021-03-31 12:21 | P.PN ---
Subjective Progress Note Date: 03/31/21 Principal diagnosis: Metastatic COlon Cancer I had along discussion with Wilbert today. Epistaxis is likely multifactorial from anti-angiogenesis, benzonate, anti- histamine, inhaled steroid, and high probability of non-healing HSV sore as she currently has a breakout on bottom and has been on Valtrex in past. Rx: for Valtrex: Treatment Dose Stop Drying meds if possible Coconut oil intranasal as lubricant as should not use petroleum with Oxygen We had a 60minute conversation today on nutrition, anemia, natural ways to decrease stress, and coordination of care Check repeat Hemoglobin and check iron studies. If hemoglobin down one point or more can transfuse PRBC, otherwise will follow up on as already scheduled Will see Priscilla Dutton in office next week Objective - Vital Signs Vital signs: Vital Signs Temp 97.5 F L 03/31/21 08:00 Pulse 113 H 03/31/21 08:00 Resp 20 03/31/21 08:00 BP 117/79 03/31/21 08:00 Pulse Ox 93 L 03/31/21 08:00 Intake & Output 03/30/21 03/31/21 03/31/21 18:59 06:59 18:59 Intake Total 700 Output Total 400 Balance 300 Intake: Oral 700 Output: Urine 400 - Labs CBC & Chem 7: 03/30/21 06:52 03/31/21 11:32 Labs: Abnormal Lab Results - Last 24 Hours (Table) 03/30/21 03/30/21 03/31/21 Range/Units 16:42 20:18 07:38 POC Glucose (mg/dL) 253 H 220 H 216 H (75-99) mg/dL 03/31/21 Range/Units 11:36 POC Glucose (mg/dL) 224 H (75-99) mg/dL Assessment and Plan (1) Metastatic colon cancer in female Current Visit: Yes Status: Acute Code(s): C18.9 - MALIGNANT NEOPLASM OF COLON, UNSPECIFIED SNOMED Code(s): 764268831 (2) Acute exacerbation of chronic obstructive pulmonary disease (COPD) Current Visit: Yes Status: Acute Code(s): J44.1 - CHRONIC OBSTRUCTIVE PULMONARY DISEASE W (ACUTE) EXACERBATION SNOMED Code(s): 833987517 Plan: Assessment and Recommendations: Metastatic Colon Cancer: - Recent Progression - Status Post Second Line treatment with FOLFIRI and MVASI (ANTI-ANGIOGENESIS which places risk of bleeding and if surgical procedure needed) on 03/20 Acute Respiratory insufficiency: - CTA without PE Epistaxis: - Likely combination from antiangiogenesis and O2 - ENT and pulm following Plan: Check Iron Studies Stop drying meds Add Valtrex Greater than 60 minutes today
[2021-03-31 12:30] LABS: Anisocytosis Moderate; HCT 30.6 % (34.0-46.0); HGB 9.2 gm/dL (11.4-16.0); Hypochromasia Marked; MCH 29.8 pg (25.0-35.0); MCHC 30.2 g/dL (31.0-37.0); MCV 98.8 fL (80.0-100.0); Macrocytosis Moderate; Mean Platelet Volume 8.6; Platelet Count 154 k/uL (150-450); Poikilocytosis Slight; RDW 20.5 % (11.5-15.5)
[2021-03-31] MEDS ORDERED: valACYclovir HCL 1,000 MG TABLET PO SCH (12:45)
[2021-03-31 12:58] VITALS: PULSE 82
[2021-03-31 13:04] VITALS: BMI 21.4
[2021-03-31 13:05] LABS: Band Neutrophils % 2 %; Lymphocytes # (M) 1.98 k/uL (1.0-4.8); Neutrophils % (M) 68 %; Nucleated Red Blood Cells 4 /100 WBC (0-0); Polychromasia Present; Tear Drop Cells Present; Total Cells Counted 100; WBC 6.6 k/uL (3.8-10.6)
--- NOTE | 2021-03-31 13:13 | P.DS ---
Providers Date of admission: 03/30/21 01:09 Expected date of discharge: 03/31/21 Attending physician: Mahin Mccarthy MD Consults: 03/30/21 01:09 Consult Physician Routine Consulting Provider: Nikky Blunt Consult Reason/Comments: hypoxia-longCOVID Do you want consulting provider notified?: Yes Consult Physician Routine Consulting Provider: Reginald Garcia Consult Reason/Comments: known Do you want consulting provider notified?: Yes Primary care physician: Omega Landis Hospital Course: Discharge Diagnosis: Epistaxis, resolved Anemia, secondary to antineoplastic chemotherapeutic medications Dyspnea with exertion and 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 Patient reports she was hospitalized with Covid at [facility] from 02/22/21-03/11/21 when she was discharged home on 4 L of oxygen. Patient reports she has been wearing oxygen intermittently at home, but does not wear at all times. Patient states that her biggest problem since previous diagnosis with Covid has been activity intolerance and shortness of breath with exertion. Patient she waited a short while after being discharged from hospital to resume her chemotherapy treatments. Patient reports after discharge on 03/11/21 she resumed chemotherapy on 03/20/21. Patient reports since resuming chemotherapy her shortness of breath with exertion and fatigue has worsened. Patient reports she can barely ambulate to and from restroom due to excess fatigue and increased SOB. She also reports that in addition to the increased fatigue and shortness of breath she has had recurrent nosebleeds. Patient reports she has been seen multiple times for her nosebleeds and was informed that it is likely due to oxygen use. She denies any traumas or injuries. Patient was admitted under our services with consultation to pulmonology and oncology. Patient was seen and fully evaluated this morning. She was ambulating in room and appeared to be doing well. Patient listening to music, showing no signs of acute distress. No further episodes of epistaxis. Hemoglobin is stable at 9.2. Patient has been evaluated by pulmonology and oncology and cleared for discharge as well. Patient is medically stable for discharge home. Patient is being discharged home with palliative care to assist her in managing the side effects she has been experiencing from her chemotherapy treatments as well as the continued shortness of breath with exertion accompanied by fatigue she has been experiencing from the residual effects of her previous Covid infection. Vital signs reviewed and stable. General: Nontoxic, no distress and appears stated age. Derm: Skin warm and dry, normal coloration for ethnicity. Head: Atraumatic, normocephalic and symmetric. Eyes: EOMs intact, no lid lag, and anicteric sclera Mouth: no lip lesions, mucus membranes moist Cardiovascular: regular rate and rhythm with normal S1S2, no murmur, positive posterior tibial pulses bilaterally, and cap refill < 2 seconds. Lungs: Respirations even, regular, and unlabored on room air. Lungs CTA bilaterally, no rhonchi, no rales, no wheezing, and no accessory muscle usage. Abdominal: soft, nontender to palpation, no guarding, no appreciable organomegaly Ext: ROM intact. No gross muscle atrophy, no edema, no contractures Neuro: Speech clear, face symmetrical and CN II-XII grossly intact with no noted focal neuro deficits Psych: Alert and oriented to person, place, time, and situation. Appropriate and pleasant affect. A total of 45 minutes of time were spent preparing this complex discharge summary. Patient Condition at Discharge: Stable Plan - Discharge Summary Discharge Rx Participant: Yes New Discharge Prescriptions: New Fluticasone Propionate [Flonase Allergy Relief] 2 spray EA NOSTRIL DAILY #9.9 ml valACYclovir [Valtrex] 1,000 mg PO BID #60 tab LORazepam [Ativan] 0.5 mg PO TID PRN tab PRN Reason: Anxiety INSULIN ASPART (NovoLOG) [NovoLOG (formulary)] 0 unit SQ ACHS ml Montelukast [Singulair] 10 mg PO HS tab Continue Zinc Gluconate [Zinc] 50 mg PO DAILY metFORMIN HCL ER [Glucophage XR] 500 mg PO DAILY Discontinued Ascorbic Acid [Vitamin C] 500 mg PO DAILY Fluticasone/Salmeterol [Advair Hfa 230-21 Mcg Inhaler] 2 puff INHALATION RT- BID Montelukast [Singulair] 10 mg PO HS LORazepam [Ativan] 0.5 mg PO TID PRN PRN Reason: Anxiety Benzonatate [Tessalon Perles] 100 mg PO TID No Action Losartan [Cozaar] 25 mg PO HS amLODIPine [Norvasc] 5 mg PO BID Atorvastatin [Lipitor] 20 mg PO HS Albuterol Sulfate [Proair Hfa] 2 puff INHALATION RT-QID PRN PRN Reason: Shortness Of Breath Discharge Medication List Atorvastatin [Lipitor] 20 mg PO HS 07/17/20 [History] Losartan [Cozaar] 25 mg PO HS 07/17/20 [History] amLODIPine [Norvasc] 5 mg PO BID 07/17/20 [History] Zinc Gluconate [Zinc] 50 mg PO DAILY 03/23/21 [History] Albuterol Sulfate [Proair Hfa] 2 puff INHALATION RT-QID PRN 03/30/21 [History] Fluticasone Propionate [Flonase Allergy Relief] 2 spray EA NOSTRIL DAILY #9.9 ml 03/30/21 [Rx] metFORMIN HCL ER [Glucophage XR] 500 mg PO DAILY 03/30/21 [History] INSULIN ASPART (NovoLOG) [NovoLOG (formulary)] 0 unit SQ ACHS ml 03/31/21 [Rx] LORazepam [Ativan] 0.5 mg PO TID PRN tab 03/31/21 [Rx] Montelukast [Singulair] 10 mg PO HS tab 03/31/21 [Rx] valACYclovir [Valtrex] 1,000 mg PO BID #60 tab 03/31/21 [Rx] Follow up Appointment(s)/Referral(s): Jaycob Tejeda DO [Doctor of Osteopathic Medicine] - 1 Week Omega Landis MD [Primary Care Provider] - 1-2 days Kael Frye MD [STAFF PHYSICIAN] - 1 Week Activity/Diet/Wound Care/Special Instructions: Activity: As tolerated. Take breaks as needed. Diet: Heart healthy and carb consistent diet. Avoid salts, or foods with hidden salts such as canned or boxed foods and frozen dinners. Extra salt makes your heart work harder and traps the fluid in your body for longer. Special Instructions: Take all of your medications as directed and remember to keep all of your doctor's appointments and follow-up as needed. You are being discharged home with palliative care to assist you with managing the side effects you may be experiencing from your chemotherapy treatments as well as the continued shortness of breath with ambulation accompanied by the fatigue you have been experiencing resulting from your recent COVID infection. It is important to wear oxygen at home at all times as you were previously instructed. It is also important to follow-up outpatient with her guitar instructor, Dr. Tejeda for further monitoring and management of her oxygen needs as well as outpatient pulmonary function tests if commended.. Continue to follow with oncology, Dr. Alonso with [facility] [place] for continued chemotherapy treatments. Follow-up as scheduled with hematology/oncology on April 05 as scheduled with Priscilla Dutton NP. Your bloody noses are likely due to dried nares secondary to oxygen use. We will prescribe saline nasal spray in which he will use 2 sprays in each Nares once daily. Thank you for allowing us to participate in your care, it was truly a pleasure having you for our patient!!! Discharge Disposition: HOME WITH HOME HEALTH SERVICES
[2021-03-31 17:35] LABS: % Iron Saturation 28.67 (12.00-45.00)
== END 2021-03-31 17:00 | disposition home health service (06) ==
LOC: EC 22:30 → 4SSUR 03-30 01:09 → 5NMEDONC 03-30 23:02
PROVIDERS: ADMIT Internal Medicine; ATTEND Internal Medicine
DX: D64.81 Anemia due to antineoplastic chemotherapy (principal); J96.01 Acute respiratory failure with hypoxia; U09.9 Post COVID-19 condition, unspecified; R04.0 Epistaxis; D69.59 Other secondary thrombocytopenia; G62.0 Drug-induced polyneuropathy; C18.9 Malignant neoplasm of colon, unspecified; T45.1X5A Adverse effect of antineoplastic and immunosuppressive drugs, initial encounter; J44.1 Chronic obstructive pulmonary disease with (acute) exacerbation; J45.30 Mild persistent asthma, uncomplicated; E11.9 Type 2 diabetes mellitus without complications; I10 Essential (primary) hypertension; J44.0 Chronic obstructive pulmonary disease with (acute) lower respiratory infection; R91.8 Other nonspecific abnormal finding of lung field; E87.6 Hypokalemia; R53.83 Other fatigue; R79.89 Other specified abnormal findings of blood chemistry; B00.9 Herpesviral infection, unspecified; R74.01 Elevation of levels of liver transaminase levels; E78.5 Hyperlipidemia, unspecified; Z20.822 Contact with and (suspected) exposure to COVID-19; Z79.51 Long term (current) use of inhaled steroids; Z79.84 Long term (current) use of oral hypoglycemic drugs; Z79.899 Other long term (current) drug therapy; Z88.1 Allergy status to other antibiotic agents; Z91.048 Other nonmedicinal substance allergy status; Z86.718 Personal history of other venous thrombosis and embolism; Z99.81 Dependence on supplemental oxygen; Z90.710 Acquired absence of both cervix and uterus; Z87.01 Personal history of pneumonia (recurrent); Z90.49 Acquired absence of other specified parts of digestive tract; Z85.43 Personal history of malignant neoplasm of ovary; Z87.891 Personal history of nicotine dependence; Z80.3 Family history of malignant neoplasm of breast; Z83.3 Family history of diabetes mellitus; Z82.49 Family history of ischemic heart disease and other diseases of the circulatory system; Z82.3 Family history of stroke; Z83.1 Family history of other infectious and parasitic diseases
CPT/HCPCS: 96376; 96361; 96374; 96375; 99285; 36415; 94640 ×2; 93005; 93306; 85379; 83880; 80053 ×3; 82728; 83540; 83550; 83615; 83735; 84100; 84443; 84484; 85025 ×3; 85610; 85730; 86140; 87635; 71275; G0378 ×3; J1100; J2930; Q9967

== ENCOUNTER → 2021-04-25 | Outpatient (CLI) | payer BC ==
--- NOTE | 2021-04-27 09:44 | MM ---
Reason for exam: screening (asymptomatic). Last mammogram was performed 1 year and 5 months ago. History: Patient is postmenopausal, has history of ovarian cancer at age 53, and had first child at age 34. Family history of breast cancer in mother at age 88. Benign right mammotome panel of the right breast, February 13, 2009. Took hormonal contraceptives for 15 years. Physical Findings: A clinical breast exam by your physician is recommended on an annual basis and results should be correlated with mammographic findings. MG 3D Screening Mammo W/Cad Bilateral CC and MLO view(s) were taken. Prior study comparison: November 22, 2019, bilateral MG 3d screening mammo w/cad. February 22, 2019, left breast MG 3d diag mammo w/cad LT. There are scattered fibroglandular densities. Previous mammotome biopsy in the right breast. There is chronic nodularity in the left anterior upper outer quadrant. Stable grouped right upper outer quadrant calcifications. No significant changes when compared with prior studies. ASSESSMENT: Benign, BI-RAD 2 RECOMMENDATION: Routine screening mammogram of both breasts in 1 year.
== END | disposition home or self-care (01) ==
LOC: RADMAMWWP 11:02
PROVIDERS: ATTEND Family Medicine
DX: Z12.31 Encounter for screening mammogram for malignant neoplasm of breast (principal); Z80.3 Family history of malignant neoplasm of breast; Z78.0 Asymptomatic menopausal state
CPT/HCPCS: 77063; 77067